=== PATIENT | female | born 2000 | race Caucasian/White ===

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

== ENCOUNTER 2018-08-08 14:48 | Emergency (ER) | payer SELFPAY ==
[~2018-08-08] VITALS: Ht 165.1 cm; Wt 81.6 kg
[~2018-08-08 14:48] MED LIST changes: +DOCU100C37 PO; +IBUP-1780 PO; +OXYC-465 PO
--- OUTSIDE RECORDS SUMMARY | 2018-08-08 14:53 | XMS REPORT ---
Author Author JAVON JUSTIN [facility] Address [address] [place] [address] Care Team Providers Care Clear Coat Sprayer Name Role Phone JAVON JUSTIN Unavailable PROBLEMS Unknown Problems ALLERGIES No Information ENCOUNTERS Encounter Location Date Diagnosis [facility] [address] [facility] [id number] [address] Jun, IMMUNIZATIONS No Known Immunizations SOCIAL HISTORY Never Assessed REASON FOR VISIT [place] Screening Results PLAN OF CARE VITAL SIGNS MEDICATIONS Unknown Medications RESULTS No Results PROCEDURES No Known procedures INSTRUCTIONS MEDICATIONS ADMINISTERED No Known Medications
--- OUTSIDE RECORDS SUMMARY | 2018-08-08 14:54 | XMS REPORT | Continuity of Care Document ---
Author Author [facility] Organization [facility] Address Unknown Phone Unavailable Allergies Active Description [...] and Drug Allergy Unknown Vomiting 10/19/2016 Medications There is no data. Problems There is no data. Procedures There is no data. <section xmlns="urn:hl7-org:v3" xmlns:xsi="http:// www.[employer].org/2001/XMLSchema-instance"> <templateId root= "2.16.840.1.747096.10.20.22.2.3" /> <templateId root= "2.16.840.1.690581.10.20.22.2.3.1" /> <code codeSystemName="LOINC" codeSystem= "2.16.840.1.603417.6.1" code="24616-2" displayName="Results" /> <title>Results< /title> <text> <table> <thead> <tr> <th>Test</th> <th>Result</th> <th>Range</th> </tr> </thead> < tbody> <tr> <th colspan="10">UR TEST - 02/04/13 22:52< /th> </tr> <tr> <td>UR TEST</td> <td> NEGATIVE </td> <td>NEGATIVE</td> </tr> <tr> <th colspan="10">URINALYSIS WITH MICROSCOPIC - 02/04/13 22:52</th> </tr> <tr> <td>UA LEUKOCYTE ESTERASE DIPSTICK</td> <td>NEGATIVE </td> <td>NEGATIVE</td> </tr> <tr> <td>UA NITRITE DIPSTICK</td> <td>NEGATIVE </td> <td>NEGATIVE</td> </tr> <tr> <td>UA PROTEIN DIPSTICK</td> <td> NEGATIVE </td> <td>NEGATIVE</td> </tr> <tr> <td> UA GLUCOSE DIPSTICK</td> <td>NEGATIVE </td> <td>NEGATIVE</td> </tr> <tr> <td>UA KETONE DIPSTICK</td> <td> NEGATIVE </td> <td>NEGATIVE</td> </tr> <tr> <td> UA UROBILINOGEN DIPSTICK</td> <td>NORMAL </td> <td>NORMAL</td > </tr> <tr> <td>UA BILIRUBIN DIPSTICK</td> <td> NEGATIVE </td> <td>NEGATIVE</td> </tr> <tr> <td> UA BLOOD DIPSTICK</td> <td>1+ </td> <td>NEGATIVE</td> < /tr> <tr> <td>UA BACTERIA</td> <td>1+ </td> < td>NEGATIVE</td> </tr> <tr> <td>UA EPITHELIAL CELLS</td> <td>1+ epi/hpf</td> <td>0 - 1+</td> </tr> <tr> <td>UA MUCUS</td> <td>2+ </td> <td>NEG TO 1+</td> </tr> <tr> <td>UA RBC</td> <td>0-3 rbc/hpf</td> <td>0 - 3</td> </tr> <tr> <td>UA VOLUME FOR EXAM </td> <td>12.0 mL</td> <td>(12mL STD)</td> </tr> <tr> <td>UA WBC</td> <td>0 wbc/hpf</td> <td>0 - 5</ td> </tr> <tr> <td>UA SPECIFIC GRAVITY</td> <td> 1.020 </td> <td>1.015-1.025</td> </tr> <tr> <td> UR PH</td> <td>6.0 </td> <td>5.0-7.0</td> </tr> <tr> <th colspan="10">STREP THROAT SCREEN (GROUP A) - STREP THROAT CULTURE (GROUP A) - 03/19/14 14:20</th> </tr> <tr> <td> Microbiology</td> <td> </td> <td /> </tr> <tr> <th colspan="10">CBC W/DIFF - 08/18/16 21:22</th> </tr> < tr> <td>EOSINOPHIL #</td> <td>0.1 k/cumm</td> <td>0.1 -0.5</td> </tr> <tr> <td>EOSINOPHIL %</td> < td>1 %</td> <td>2-4</td> </tr> <tr> <td> GRANULOCYTE #</td> <td>11.6 k/cumm</td> <td>2.0-9.0</td> </tr> <tr> <td>GRANULOCYTE %</td> <td>75 %</ td> <td>50-75</td> </tr> <tr> <td>LYMPHOCYTE #</ td> <td>3.0 k/cumm</td> <td>1.0-4.0</td> </tr> < tr> <td>LYMPHOCYTE %</td> <td>19 %</td> <td> 20-30</td> </tr> <tr> <td>MEAN CELL HGB</td> <td >29.3 pg</td> <td>27.0-33.0</td> </tr> <tr> <td> MEAN CELL HGB CONCENTRATION</td> <td>33.8 g/dL</td> <td>32.0- 37.0</td> </tr> <tr> <td>MEAN CELL VOLUME</td> < td>86.7 fl</td> <td>80.0-100.0</td> </tr> <tr> < td>MONOCYTE #</td> <td>0.8 k/cumm</td> <td>0.1-1.0</td> </tr> <tr> <td>MONOCYTE %</td> <td>5 %</td> <td>4-6</td> </tr> <tr> <td>RED BLOOD CELL</td> <td>4.44 m/cumm</td> <td>4.00-6.00</td> </tr> < tr> <td>RED CELL DISTRIBUTION WIDTH</td> <td>13.8 %</td> <td>11.0-15.6</td> </tr> <tr> <td>WHITE BLOOD CELL</td> <td>15.4 k/cumm</td> <td>5.0-10.0</td> </tr> <tr> <td>HEMOGLOBIN</td> <td>13.0 gm/dL</td> <td>12.0-16.0</td> </tr> <tr> <td>HEMATOCRIT</td> <td>38.5 %</td> <td>37.0-47.0</td> </tr> <tr> <td>PLATELET COUNT</td> <td>286 k/cumm</td> <td>150-450< /td> </tr> <tr> <th colspan="10">METABOLIC PANEL, BASIC - 08/18/16 21:22</th> </tr> <tr> <td>POTASSIUM</td> <td>3.4 mmol/L</td> <td>3.5-5.3</td> </tr> <tr> <td>EST GFR (MDRD)</td> <td>> 60 mL/min</td> <td>&gt ; 59</td> </tr> <tr> <td>ANION GAP</td> <td>10 mmol/L</td> <td>5-15</td> </tr> <tr> <td>EST CrCl (CG)</td> <td>> 60 mL/min</td> <td>> 59</td> </tr> <tr> <td>GLUCOSE</td> <td>93 mg/dL</td> <td>70-99</td> </tr> <tr> <td>CALCIUM</td> < td>9.0 mg/dL</td> <td>8.5-10.1</td> </tr> <tr> < td>BLOOD UREA NITROGEN</td> <td>11 mg/dL</td> <td>7-20</td> </tr> <tr> <td>CREATININE</td> <td>0.7 mg/dL</td > <td>0.5-1.0</td> </tr> <tr> <td>SODIUM</td> <td>138 mmol/L</td> <td>135-148</td> </tr> <tr> <td>CHLORIDE</td> <td>101 mmol/L</td> <td>98-110</td > </tr> <tr> <td>CARBON DIOXIDE</td> <td>27 mmol /L</td> <td>21-32</td> </tr> <tr> <th colspan= "10">URINALYSIS, ROUTINE - 08/18/16 22:30</th> </tr> <tr> <td>UA LEUKOCYTE ESTERASE DIPSTICK</td> <td>NEGATIVE </td> < td>NEGATIVE</td> </tr> <tr> <td>UA NITRITE DIPSTICK</td> <td>NEGATIVE </td> <td>NEGATIVE</td> </tr> <tr > <td>UA PROTEIN DIPSTICK</td> <td>TRACE </td> <td> NEGATIVE</td> </tr> <tr> <td>UA GLUCOSE DIPSTICK</td> <td>NEGATIVE </td> <td>NEGATIVE</td> </tr> <tr> <td>UA KETONE DIPSTICK</td> <td>NEGATIVE </td> <td> NEGATIVE</td> </tr> <tr> <td>UA UROBILINOGEN DIPSTICK</td > <td>NORMAL </td> <td>NORMAL</td> </tr> <tr> <td>UA BILIRUBIN DIPSTICK</td> <td>NEGATIVE </td> <td> NEGATIVE</td> </tr> <tr> <td>UA BLOOD DIPSTICK</td> <td>2+ </td> <td>NEGATIVE</td> </tr> <tr> < td>UA SPECIFIC GRAVITY</td> <td>1.020 </td> <td>1.015-1.025</ td> </tr> <tr> <td>UR PH</td> <td>6.5 </td> <td>5.0-7.0</td> </tr> <tr> <th colspan="10">UA MICROSCOPIC - 08/18/16 22:30</th> </tr> <tr> <td>UA AMORPHOUS SEDIMENT</td> <td>1+ </td> <td /> </tr> <tr> <td>UA EPITHELIAL CELLS</td> <td>1+ epi/hpf</td> <td>0 - 1+</td> </tr> <tr> <td>UA MUCUS</td> <td>3+ </td> <td>NEG TO 1+</td> </tr> <tr> < td>UA RBC</td> <td>3-5 rbc/hpf</td> <td>0 - 3</td> </tr > <tr> <td>UA VOLUME FOR EXAM</td> <td>12.0 mL</td> <td>(12mL STD)</td> </tr> <tr> <td>UA WBC</td> <td>0 wbc/hpf</td> <td>0 - 5</td> </tr> <tr> <th colspan="10">UR TEST - 08/18/16 22:30</th> </tr> <tr> <td>UR TEST</td> <td>NEGATIVE </td> <td>NEGATIVE</td> </tr> </tbody> </table> </text> <entry> <organizer moodCode="EVN" classCode="BATTERY"> <templateId root= "216.840.1.168013.10..22.4.1" /> <id nullFlavor="NA" /> <code codeSystem="local" code="PREGU" displayName="UR TEST" /> < statusCode code="completed" /> <component> <observation moodCode= "EVN" classCode="OBS"> <templateId root="216.840.1.507346.10..22.4.2 " /> <id nullFlavor="NA" /> <code codeSystem="local" code= "PREGU" displayName="UR TEST" /> <statusCode code="completed " /> <effectiveTime value="442357934698" /> <value unit="" xsi :type="PQ" value="NEGATIVE" /> <referenceRange> < observationRange> <text>NEGATIVE</text> </ observationRange> </referenceRange> </observation> </ component> </organizer> </entry> <entry> <organizer moodCode="EVN" classCode="BATTERY"> <templateId root="216.840.1.454246.10..22.4.1" /> <id nullFlavor="NA" /> <code codeSystem="local" code="UAM" displayName ="URINALYSIS WITH MICROSCOPIC" /> <statusCode code="completed" /> < component> <observation moodCode="EVN" classCode="OBS"> < templateId root="09.09.840.1.210830.05.13.224.2" /> <id nullFlavor="NA " /> <code codeSystem="local" code="LEUESU" displayName="UA LEUKOCYTE ESTERASE DIPSTICK" /> <statusCode code="completed" /> < effectiveTime value="842280621857" /> <value unit="" xsi:type="PQ" value="NEGATIVE" /> <referenceRange> <observationRange> <text>NEGATIVE</text> </observationRange> </ referenceRange> </observation> </component> <component> <observation moodCode="EVN" classCode="OBS"> <templateId root= "840.1.708810.05.13.224.2" /> <id nullFlavor="NA" /> < code codeSystem="local" code="NITRIU" displayName="UA NITRITE DIPSTICK" /> <statusCode code="completed" /> <effectiveTime value="121467341358 " /> <value unit="" xsi:type="PQ" value="NEGATIVE" /> < referenceRange> <observationRange> <text>NEGATIVE</text > </observationRange> </referenceRange> </observation > </component> <component> <observation moodCode="EVN" classCode="OBS"> <templateId root="09.09.840.1.016051.104.2" /> <id nullFlavor="NA" /> <code codeSystem="local" code="PROTEIU " displayName="UA PROTEIN DIPSTICK" /> <statusCode code="completed" /> <effectiveTime value="508241835336" /> <value unit="" xsi: type="PQ" value="NEGATIVE" /> <referenceRange> < observationRange> <text>NEGATIVE</text> </ observationRange> </referenceRange> </observation> </ component> <component> <observation moodCode="EVN" classCode="OBS"> <templateId root="16.840.1.090416.10..4.2" /> <id nullFlavor="NA" /> <code codeSystem="local" code="DGLUU" displayName= "UA GLUCOSE DIPSTICK" /> <statusCode code="completed" /> < effectiveTime value="264797119211" /> <value unit="" xsi:type="PQ" value="NEGATIVE" /> <referenceRange> <observationRange> <text>NEGATIVE</text> </observationRange> </ referenceRange> </observation> </component> <component> <observation moodCode="EVN" classCode="OBS"> <templateId root= "09.09.840.1.077111.10.4.2" /> <id nullFlavor="NA" /> < code codeSystem="local" code="KETONU" displayName="UA KETONE DIPSTICK" /> <statusCode code="completed" /> <effectiveTime value="891398575999 " /> <value unit="" xsi:type="PQ" value="NEGATIVE" /> < referenceRange> <observationRange> <text>NEGATIVE</text > </observationRange> </referenceRange> </observation > </component> <component> <observation moodCode="EVN" classCode="OBS"> <templateId root="09.09.840.1.978441.10.4.2" /> <id nullFlavor="NA" /> <code codeSystem="local" code="UROBILU " displayName="UA UROBILINOGEN DIPSTICK" /> <statusCode code="completed " /> <effectiveTime value="751352764870" /> <value unit="" xsi :type="PQ" value="NORMAL" /> <referenceRange> < observationRange> <text>NORMAL</text> </observationRange > </referenceRange> </observation> </component> < component> <observation moodCode="EVN" classCode="OBS"> < templateId root="216.840.1.322266.10...4.2" /> <id nullFlavor="NA " /> <code codeSystem="local" code="BILU" displayName="UA BILIRUBIN DIPSTICK" /> <statusCode code="completed" /> <effectiveTime value="130685422420" /> <value unit="" xsi:type="PQ" value="NEGATIVE" / > <referenceRange> <observationRange> <text> NEGATIVE</text> </observationRange> </referenceRange> </observation> </component> <component> <observation moodCode ="EVN" classCode="OBS"> <templateId root= "16.840.1.897657.10...4.2" /> <id nullFlavor="NA" /> < code codeSystem="local" code="RODOLFO" displayName="UA BLOOD DIPSTICK" /> < statusCode code="completed" /> <effectiveTime value="646426746947" /> <value unit="" xsi:type="PQ" value="1+" /> < interpretationCode codeSystem="local" code="*" /> <referenceRange> <observationRange> <text>NEGATIVE</text> </ observationRange> </referenceRange> </observation> </ component> <component> <observation moodCode="EVN" classCode="OBS"> <templateId root="16.840.1.370836.10..22.4.2" /> <id nullFlavor="NA" /> <code codeSystem="local" code="BACU" displayName=" UA BACTERIA" /> <statusCode code="completed" /> < effectiveTime value="172643973638" /> <value unit="" xsi:type="PQ" value="1+" /> <interpretationCode codeSystem="local" code="*" /> <referenceRange> <observationRange> <text>NEGATIVE</ text> </observationRange> </referenceRange> </ observation> </component> <component> <observation moodCode= "EVN" classCode="OBS"> <templateId root="216.840.1.534474.10...4.2 " /> <id nullFlavor="NA" /> <code codeSystem="local" code= "EPIU" displayName="UA EPITHELIAL CELLS" /> <statusCode code="completed " /> <effectiveTime value="687371950999" /> <value unit="epi/ hpf" xsi:type="PQ" value="1+" /> <referenceRange> < observationRange> <text>0 - 1+</text> </observationRange > </referenceRange> </observation> </component> < component> <observation moodCode="EVN" classCode="OBS"> < templateId root="216.840.1.789672.10...4.2" /> <id nullFlavor="NA " /> <code codeSystem="local" code="MUCUSU" displayName="UA MUCUS" /> <statusCode code="completed" /> <effectiveTime value= "365175181193" /> <value unit="" xsi:type="PQ" value="2+" /> < interpretationCode codeSystem="local" code="*" /> <referenceRange> <observationRange> <text>NEG TO 1+</text> </ observationRange> </referenceRange> </observation> </ component> <component> <observation moodCode="EVN" classCode="OBS"> <templateId root="216.840.1.313577.10..22.4.2" /> <id nullFlavor="NA" /> <code codeSystem="local" code="RBCU" displayName=" UA RBC" /> <statusCode code="completed" /> <effectiveTime value="255237737910" /> <value unit="rbc/hpf" xsi:type="PQ" value="0-3 " /> <referenceRange> <observationRange> <text> 0 - 3</text> </observationRange> </referenceRange> </ observation> </component> <component> <observation moodCode= "EVN" classCode="OBS"> <templateId root="216.840.1.948782.10..4.2 " /> <id nullFlavor="NA" /> <code codeSystem="local" code= "UAVOL" displayName="UA VOLUME FOR EXAM" /> <statusCode code="completed " /> <effectiveTime value="216380207816" /> <value unit="mL" xsi:type="PQ" value="12.0" /> <referenceRange> < observationRange> <text>(12mL STD)</text> </ observationRange> </referenceRange> </observation> </ component> <component> <observation moodCode="EVN" classCode="OBS"> <templateId root="16.840.1.193283.10..22.4.2" /> <id nullFlavor="NA" /> <code codeSystem="local" code="WBCU" displayName=" UA WBC" /> <statusCode code="completed" /> <effectiveTime value="449873840460" /> <value unit="wbc/hpf" xsi:type="PQ" value="0" / > <referenceRange> <observationRange> <text>0 - 5</text> </observationRange> </referenceRange> </ observation> </component> <component> <observation moodCode= "EVN" classCode="OBS"> <templateId root="216.840.1.320242.10..22.4.2 " /> <id nullFlavor="NA" /> <code codeSystem="local" code= "SPGRU" displayName="UA SPECIFIC GRAVITY" /> <statusCode code= "completed" /> <effectiveTime value="243321593381" /> <value unit="" xsi:type="PQ" value="1.020" /> <referenceRange> < observationRange> <text>1.015-1.025</text> </ observationRange> </referenceRange> </observation> </ component> <component> <observation moodCode="EVN" classCode="OBS"> <templateId root="09.09.840.1.770957.10..4.2" /> <id nullFlavor="NA" /> <code codeSystem="local" code="KAILEY" displayName="UR PH" /> <statusCode code="completed" /> <effectiveTime value= "570992359462" /> <value unit="" xsi:type="PQ" value="6.0" /> <referenceRange> <observationRange> <text>5.0-7.0</text > </observationRange> </referenceRange> </observation > </component> </organizer> </entry> <entry> <organizer moodCode= "EVN" classCode="BATTERY"> <templateId root="2.16.840.1.208433.10..22.4.1 " /> <id nullFlavor="NA" /> <code codeSystem="local" code="STREPA" displayName="STREP THROAT SCREEN (GROUP A) - STREP THROAT CULTURE (GROUP A)" /> <statusCode code="completed" /> <component> <observation moodCode="EVN" classCode="OBS"> <templateId root= "2.16.840.1.375658.10..4.2" /> <id nullFlavor="NA" /> < code codeSystem="local" code="MB" displayName="Microbiology" /> < statusCode code="completed" /> <effectiveTime value="799057389463" /> <value xsi:type="ST" value="<pre><b>STREP THROAT SCREEN (GROUP A) - STREP THROAT CULTURE (GROUP A)</b> See BelowSTREP THROAT SCREEN (GROUP A)(F) Haily Date/Time: 03/19/2014 14:20 Caleb Date/Time: 03/21/2014 09:48SOURCE: THROATSPEC DESC: [facility]PNEGATIVEST[facility] [id number] [place], [place] [address]See BelowSTREP THROAT CULTURE (GROUP A)(F) Haily Date/Time: 03/19/2014 14:20 Caleb Date/Time: 03/21/2014 09:48SOURCE: THROATSPEC DESC: NNO GROUP A STREPTOCOCCUS [facility]ATEDID[facility] - [id number] [place] [address]</pre>" /> <referenceRange> <observationRange> <text /> </observationRange> </referenceRange> </observation> </component> </organizer> </entry> <entry> < organizer moodCode="EVN" classCode="BATTERY"> <templateId root= "2.16.840.1.244018.10...4.1" /> <id nullFlavor="NA" /> <code codeSystem="local" code="CBCD" displayName="CBC W/DIFF" /> <statusCode code ="completed" /> <component> <observation moodCode="EVN" classCode= "OBS"> <templateId root="2.16840.1.390918.05.13.22.4.2" /> < id nullFlavor="NA" /> <code codeSystem="local" code="EO#" displayName= "EOSINOPHIL #" /> <statusCode code="completed" /> < effectiveTime value="646351131726" /> <value unit="k/cumm" xsi:type="PQ " value="0.1" /> <referenceRange> <observationRange> <text>0.1-0.5</text> </observationRange> </ referenceRange> </observation> </component> <component> <observation moodCode="EVN" classCode="OBS"> <templateId root= "840.1.014958.05.13.224.2" /> <id nullFlavor="NA" /> < code codeSystem="local" code="EO%" displayName="EOSINOPHIL %" /> <statusCode code="completed" /> <effectiveTime value="893698328161" /> <value unit="%" xsi:type="PQ" value="1" /> < interpretationCode codeSystem="local" code="*" /> <referenceRange> <observationRange> <text>2-4</text> </ observationRange> </referenceRange> </observation> </ component> <component> <observation moodCode="EVN" classCode="OBS"> <templateId root="840.1.564732.05.13.22.4.2" /> <id nullFlavor="NA" /> <code codeSystem="local" code="GR#" displayName= "GRANULOCYTE #" /> <statusCode code="completed" /> < effectiveTime value="931399294552" /> <value unit="k/cumm" xsi:type="PQ " value="11.6" /> <interpretationCode codeSystem="local" code="*" /> <referenceRange> <observationRange> <text>2.0- 9.0</text> </observationRange> </referenceRange> </ observation> </component> <component> <observation moodCode= "EVN" classCode="OBS"> <templateId root="09.09.840.1.036730.10.20.22.4.2 " /> <id nullFlavor="NA" /> <code codeSystem="local" code="GR& #37;" displayName="GRANULOCYTE %" /> <statusCode code="completed" / > <effectiveTime value="305102789782" /> <value unit="%" xsi:type="PQ" value="75" /> <referenceRange> < observationRange> <text>50-75</text> </observationRange > </referenceRange> </observation> </component> < component> <observation moodCode="EVN" classCode="OBS"> < templateId root="840.1.106238.10.2022.4.2" /> <id nullFlavor="NA " /> <code codeSystem="local" code="LY#" displayName="LYMPHOCYTE #" /> <statusCode code="completed" /> <effectiveTime value= "166126181076" /> <value unit="k/cumm" xsi:type="PQ" value="3.0" /> <referenceRange> <observationRange> <text>1.0-4.0 </text> </observationRange> </referenceRange> </ observation> </component> <component> <observation moodCode= "EVN" classCode="OBS"> <templateId root="840.1.229447.10.20.22.4.2 " /> <id nullFlavor="NA" /> <code codeSystem="local" code="LY& #37;" displayName="LYMPHOCYTE %" /> <statusCode code="completed" / > <effectiveTime value="457595741776" /> <value unit="%" xsi:type="PQ" value="19" /> <interpretationCode codeSystem="local" code ="*" /> <referenceRange> <observationRange> < text>20-30</text> </observationRange> </referenceRange> </observation> </component> <component> <observation moodCode="EVN" classCode="OBS"> <templateId root= "216.840.1.245271.10.20.22.4.2" /> <id nullFlavor="NA" /> < code codeSystem="local" code="MCH" displayName="MEAN CELL HGB" /> < statusCode code="completed" /> <effectiveTime value="343050479578" /> <value unit="pg" xsi:type="PQ" value="29.3" /> <referenceRange > <observationRange> <text>27.0-33.0</text> < /observationRange> </referenceRange> </observation> </ component> <component> <observation moodCode="EVN" classCode="OBS"> <templateId root="216.840.1.526581.10.20.22.4.2" /> <id nullFlavor="NA" /> <code codeSystem="local" code="MCHC" displayName= "MEAN CELL HGB CONCENTRATION" /> <statusCode code="completed" /> <effectiveTime value="590812500786" /> <value unit="g/dL" xsi:type= "PQ" value="33.8" /> <referenceRange> <observationRange> <text>32.0-37.0</text> </observationRange> </ referenceRange> </observation> </component> <component> <observation moodCode="EVN" classCode="OBS"> <templateId root= "09.09.840.1.703660.10.22.4.2" /> <id nullFlavor="NA" /> < code codeSystem="local" code="MCV" displayName="MEAN CELL VOLUME" /> < statusCode code="completed" /> <effectiveTime value="988523181778" /> <value unit="fl" xsi:type="PQ" value="86.7" /> <referenceRange > <observationRange> <text>80.0-100.0</text> </observationRange> </referenceRange> </observation> </ component> <component> <observation moodCode="EVN" classCode="OBS"> <templateId root="09.09.840.1.187982...4.2" /> <id nullFlavor="NA" /> <code codeSystem="local" code="MO#" displayName= "MONOCYTE #" /> <statusCode code="completed" /> < effectiveTime value="829526101819" /> <value unit="k/cumm" xsi:type="PQ " value="0.8" /> <referenceRange> <observationRange> <text>0.1-1.0</text> </observationRange> </ referenceRange> </observation> </component> <component> <observation moodCode="EVN" classCode="OBS"> <templateId root= "09.09.840.1.778227.10.22.4.2" /> <id nullFlavor="NA" /> < code codeSystem="local" code="MO%" displayName="MONOCYTE %" /> <statusCode code="completed" /> <effectiveTime value="481819946966" /> <value unit="%" xsi:type="PQ" value="5" /> < referenceRange> <observationRange> <text>4-6</text> </observationRange> </referenceRange> </observation> </component> <component> <observation moodCode="EVN" classCode= "OBS"> <templateId root="216.840.1.005249.10.4.2" /> < id nullFlavor="NA" /> <code codeSystem="local" code="RBC" displayName= "RED BLOOD CELL" /> <statusCode code="completed" /> < effectiveTime value="[id number]" /> <value unit="m/cumm" xsi:type="PQ " value="4.44" /> <referenceRange> <observationRange> <text>4.00-6.00</text> </observationRange> </ referenceRange> </observation> </component> <component> <observation moodCode="EVN" classCode="OBS"> <templateId root= "[id number]" /> <id nullFlavor="NA" /> < code codeSystem="local" code="RDW" displayName="RED CELL DISTRIBUTION WIDTH" /> <statusCode code="completed" /> <effectiveTime value= "[id number]" /> <value unit="%" xsi:type="PQ" value="13.8" /> <referenceRange> <observationRange> <text>11.0- 15.6</text> </observationRange> </referenceRange> </ observation> </component> <component> <observation moodCode= "EVN" classCode="OBS"> <templateId root="[id number] " /> <id nullFlavor="NA" /> <code codeSystem="local" code="WBC " displayName="WHITE BLOOD CELL" /> <statusCode code="completed" /> <effectiveTime value="[id number]" /> <value unit="k/cumm" xsi: type="PQ" value="15.4" /> <interpretationCode codeSystem="local" code= "*" /> <referenceRange> <observationRange> < text>5.0-10.0</text> </observationRange> </referenceRange> </observation> </component> <component> <observation moodCode="EVN" classCode="OBS"> <templateId root= "[id number].2" /> <id nullFlavor="NA" /> < code codeSystem="local" code="HGBT" displayName="HEMOGLOBIN" /> < statusCode code="completed" /> <effectiveTime value="[id number]" /> <value unit="gm/dL" xsi:type="PQ" value="13.0" /> < referenceRange> <observationRange> <text>12.0-16.0</text > </observationRange> </referenceRange> </observation > </component> <component> <observation moodCode="EVN" classCode="OBS"> <templateId root="[id number]" /> <id nullFlavor="NA" /> <code codeSystem="local" code="HCTT" displayName="HEMATOCRIT" /> <statusCode code="completed" /> < effectiveTime value="[id number]" /> <value unit="%" xsi:type="PQ " value="38.5" /> <referenceRange> <observationRange> <text>37.0-47.0</text> </observationRange> </ referenceRange> </observation> </component> <component> <observation moodCode="EVN" classCode="OBS"> <templateId root= "[id number].2" /> <id nullFlavor="NA" /> < code codeSystem="local" code="PLT" displayName="PLATELET COUNT" /> < statusCode code="completed" /> <effectiveTime value="145298419099" /> <value unit="k/cumm" xsi:type="PQ" value="286" /> < referenceRange> <observationRange> <text>150-450</text> </observationRange> </referenceRange> </observation > </component> </organizer> </entry> <entry> <organizer moodCode= "EVN" classCode="BATTERY"> <templateId root="[id number]2.4.1 " /> <id nullFlavor="NA" /> <code codeSystem="local" code="METAB" displayName="METABOLIC PANEL, BASIC" /> <statusCode code="completed" /> <component> <observation moodCode="EVN" classCode="OBS"> < templateId root="[id number]" /> <id nullFlavor="NA " /> <code codeSystem="local" code="K" displayName="POTASSIUM" /> <statusCode code="completed" /> <effectiveTime value="[id number] " /> <value unit="mmol/L" xsi:type="PQ" value="3.4" /> < interpretationCode codeSystem="local" code="*" /> <referenceRange> <observationRange> <text>3.5-5.3</text> </ observationRange> </referenceRange> </observation> </ component> <component> <observation moodCode="EVN" classCode="OBS"> <templateId root="09.09.840.1.411389.05.13.22.4.2" /> <id nullFlavor="NA" /> <code codeSystem="local" code="eGFR" displayName= "EST GFR (MDRD)" /> <statusCode code="completed" /> < effectiveTime value="131904708480" /> <value unit="mL/min" xsi:type="PQ " value="> 60" /> <referenceRange> <observationRange> <text>> 59</text> </observationRange> </ referenceRange> </observation> </component> <component> <observation moodCode="EVN" classCode="OBS"> <templateId root= "2.16.840.1.174443.10.20.22.4.2" /> <id nullFlavor="NA" /> < code codeSystem="local" code="GAP" displayName="ANION GAP" /> < statusCode code="completed" /> <effectiveTime value="391048301282" /> <value unit="mmol/L" xsi:type="PQ" value="10" /> < referenceRange> <observationRange> <text>5-15</text> </observationRange> </referenceRange> </observation> </component> <component> <observation moodCode="EVN" classCode= "OBS"> <templateId root="2.16.840.1.719691.10.20.22.4.2" /> < id nullFlavor="NA" /> <code codeSystem="local" code="eCrCl" displayName ="EST CrCl (CG)" /> <statusCode code="completed" /> < effectiveTime value="037635187141" /> <value unit="mL/min" xsi:type="PQ " value="> 60" /> <referenceRange> <observationRange> <text>> 59</text> </observationRange> </ referenceRange> </observation> </component> <component> <observation moodCode="EVN" classCode="OBS"> <templateId root= "216.840.1.192087.10..22.4.2" /> <id nullFlavor="NA" /> < code codeSystem="local" code="GLU" displayName="GLUCOSE" /> < statusCode code="completed" /> <effectiveTime value="370110153415" /> <value unit="mg/dL" xsi:type="PQ" value="93" /> < referenceRange> <observationRange> <text>70-99</text> </observationRange> </referenceRange> </observation> </component> <component> <observation moodCode="EVN" classCode= "OBS"> <templateId root="16.840.1.725752.05.13.22.4.2" /> < id nullFlavor="NA" /> <code codeSystem="local" code="CA" displayName= "CALCIUM" /> <statusCode code="completed" /> <effectiveTime value="513258691240" /> <value unit="mg/dL" xsi:type="PQ" value="9.0" / > <referenceRange> <observationRange> <text>8.5 -10.1</text> </observationRange> </referenceRange> </ observation> </component> <component> <observation moodCode= "EVN" classCode="OBS"> <templateId root="16.840.1.333789.22.4.2 " /> <id nullFlavor="NA" /> <code codeSystem="local" code="BUN " displayName="BLOOD UREA NITROGEN" /> <statusCode code="completed" /> <effectiveTime value="260036593524" /> <value unit="mg/dL" xsi:type="PQ" value="11" /> <referenceRange> < observationRange> <text>7-20</text> </observationRange> </referenceRange> </observation> </component> < component> <observation moodCode="EVN" classCode="OBS"> < templateId root="216.840.1.787316.10..4.2" /> <id nullFlavor="NA " /> <code codeSystem="local" code="CREAT" displayName="CREATININE" /> <statusCode code="completed" /> <effectiveTime value= "432112735105" /> <value unit="mg/dL" xsi:type="PQ" value="0.7" /> <referenceRange> <observationRange> <text>0.5-1.0< /text> </observationRange> </referenceRange> </ observation> </component> <component> <observation moodCode= "EVN" classCode="OBS"> <templateId root="216.840.1.984964.05.13.22.4.2 " /> <id nullFlavor="NA" /> <code codeSystem="local" code="NA " displayName="SODIUM" /> <statusCode code="completed" /> < effectiveTime value="507321889143" /> <value unit="mmol/L" xsi:type="PQ " value="138" /> <referenceRange> <observationRange> <text>135-148</text> </observationRange> </ referenceRange> </observation> </component> <component> <observation moodCode="EVN" classCode="OBS"> <templateId root= "16.840.1.686759..22.4.2" /> <id nullFlavor="NA" /> < code codeSystem="local" code="CL" displayName="CHLORIDE" /> < statusCode code="completed" /> <effectiveTime value="038576947511" /> <value unit="mmol/L" xsi:type="PQ" value="101" /> < referenceRange> <observationRange> <text>98-110</text> </observationRange> </referenceRange> </observation> </component> <component> <observation moodCode="EVN" classCode ="OBS"> <templateId root="216.840.1.006164.10.20.22.4.2" /> < id nullFlavor="NA" /> <code codeSystem="local" code="CO2" displayName= "CARBON DIOXIDE" /> <statusCode code="completed" /> < effectiveTime value="025308213021" /> <value unit="mmol/L" xsi:type="PQ " value="27" /> <referenceRange> <observationRange> <text>21-32</text> </observationRange> </ referenceRange> </observation> </component> </organizer> </entry > <entry> <organizer moodCode="EVN" classCode="BATTERY"> <templateId root="2.16.840.1.344109.10..22.4.1" /> <id nullFlavor="NA" /> <code codeSystem="local" code="UA" displayName="URINALYSIS, ROUTINE" /> < statusCode code="completed" /> <component> <observation moodCode= "EVN" classCode="OBS"> <templateId root="216.840.1.489248.10..22.4.2 " /> <id nullFlavor="NA" /> <code codeSystem="local" code= "LEUESU" displayName="UA LEUKOCYTE ESTERASE DIPSTICK" /> <statusCode code="completed" /> <effectiveTime value="677169369630" /> < value unit="" xsi:type="PQ" value="NEGATIVE" /> <referenceRange> <observationRange> <text>NEGATIVE</text> </ observationRange> </referenceRange> </observation> </ component> <component> <observation moodCode="EVN" classCode="OBS"> <templateId root="216.840.1.220971.10..22.4.2" /> <id nullFlavor="NA" /> <code codeSystem="local" code="NITRIU" displayName= "UA NITRITE DIPSTICK" /> <statusCode code="completed" /> < effectiveTime value="173654557158" /> <value unit="" xsi:type="PQ" value="NEGATIVE" /> <referenceRange> <observationRange> <text>NEGATIVE</text> </observationRange> </ referenceRange> </observation> </component> <component> <observation moodCode="EVN" classCode="OBS"> <templateId root= "16.840.1.039406.10..4.2" /> <id nullFlavor="NA" /> < code codeSystem="local" code="PROTEIU" displayName="UA PROTEIN DIPSTICK" /> <statusCode code="completed" /> <effectiveTime value= "549204370210" /> <value unit="" xsi:type="PQ" value="TRACE" /> <referenceRange> <observationRange> <text>NEGATIVE</ text> </observationRange> </referenceRange> </ observation> </component> <component> <observation moodCode= "EVN" classCode="OBS"> <templateId root="16.840.1.337832.10..4.2 " /> <id nullFlavor="NA" /> <code codeSystem="local" code= "DGLUU" displayName="UA GLUCOSE DIPSTICK" /> <statusCode code= "completed" /> <effectiveTime value="857697343413" /> <value unit="" xsi:type="PQ" value="NEGATIVE" /> <referenceRange> < observationRange> <text>NEGATIVE</text> </ observationRange> </referenceRange> </observation> </ component> <component> <observation moodCode="EVN" classCode="OBS"> <templateId root="216.840.1.443847.10.4.2" /> <id nullFlavor="NA" /> <code codeSystem="local" code="KETONU" displayName= "UA KETONE DIPSTICK" /> <statusCode code="completed" /> < effectiveTime value="410427691029" /> <value unit="" xsi:type="PQ" value="NEGATIVE" /> <referenceRange> <observationRange> <text>NEGATIVE</text> </observationRange> </ referenceRange> </observation> </component> <component> <observation moodCode="EVN" classCode="OBS"> <templateId root= "09.09.840.1.263364.05.13.22.4.2" /> <id nullFlavor="NA" /> < code codeSystem="local" code="UROBILU" displayName="UA UROBILINOGEN DIPSTICK" / > <statusCode code="completed" /> <effectiveTime value= "848012325622" /> <value unit="" xsi:type="PQ" value="NORMAL" /> <referenceRange> <observationRange> <text>NORMAL</ text> </observationRange> </referenceRange> </ observation> </component> <component> <observation moodCode= "EVN" classCode="OBS"> <templateId root="16.840.1.642051.05.13.22.4.2 " /> <id nullFlavor="NA" /> <code codeSystem="local" code= "BILU" displayName="UA BILIRUBIN DIPSTICK" /> <statusCode code= "completed" /> <effectiveTime value="929171697448" /> <value unit="" xsi:type="PQ" value="NEGATIVE" /> <referenceRange> < observationRange> <text>NEGATIVE</text> </ observationRange> </referenceRange> </observation> </ component> <component> <observation moodCode="EVN" classCode="OBS"> <templateId root="16.840.1.521850.10..22.4.2" /> <id nullFlavor="NA" /> <code codeSystem="local" code="RODOLFO" displayName="UA BLOOD DIPSTICK" /> <statusCode code="completed" /> < effectiveTime value="963725316137" /> <value unit="" xsi:type="PQ" value="2+" /> <interpretationCode codeSystem="local" code="*" /> <referenceRange> <observationRange> <text>NEGATIVE</ text> </observationRange> </referenceRange> </ observation> </component> <component> <observation moodCode= "EVN" classCode="OBS"> <templateId root="09.09.840.1.846176.10..4.2 " /> <id nullFlavor="NA" /> <code codeSystem="local" code= "SPGRU" displayName="UA SPECIFIC GRAVITY" /> <statusCode code= "completed" /> <effectiveTime value="991236988634" /> <value unit="" xsi:type="PQ" value="1.020" /> <referenceRange> < observationRange> <text>1.015-1.025</text> </ observationRange> </referenceRange> </observation> </ component> <component> <observation moodCode="EVN" classCode="OBS"> <templateId root="16.840.1.333020.10.20.22.4.2" /> <id nullFlavor="NA" /> <code codeSystem="local" code="KAILEY" displayName="UR PH" /> <statusCode code="completed" /> <effectiveTime value= "620954970597" /> <value unit="" xsi:type="PQ" value="6.5" /> <referenceRange> <observationRange> <text>5.0-7.0</text > </observationRange> </referenceRange> </observation > </component> </organizer> </entry> <entry> <organizer moodCode= "EVN" classCode="BATTERY"> <templateId root="16.840.1.344196.10..22.4.1 " /> <id nullFlavor="NA" /> <code codeSystem="local" code="UAMICRO" displayName="UA MICROSCOPIC" /> <statusCode code="completed" /> < component> <observation moodCode="EVN" classCode="OBS"> < templateId root="09.09.840.1.666326.10...4.2" /> <id nullFlavor="NA " /> <code codeSystem="local" code="AMORPU" displayName="UA AMORPHOUS SEDIMENT" /> <statusCode code="completed" /> <effectiveTime value="578593166016" /> <value unit="" xsi:type="PQ" value="1+" /> <referenceRange> <observationRange> <text /> </observationRange> </referenceRange> </observation> </component> <component> <observation moodCode="EVN" classCode= "OBS"> <templateId root="16.840.1.106462.10...4.2" /> < id nullFlavor="NA" /> <code codeSystem="local" code="EPIU" displayName= "UA EPITHELIAL CELLS" /> <statusCode code="completed" /> < effectiveTime value="183341128177" /> <value unit="epi/hpf" xsi:type= "PQ" value="1+" /> <referenceRange> <observationRange> <text>0 - 1+</text> </observationRange> </ referenceRange> </observation> </component> <component> <observation moodCode="EVN" classCode="OBS"> <templateId root= "216.840.1.828570.10...4.2" /> <id nullFlavor="NA" /> < code codeSystem="local" code="MUCUSU" displayName="UA MUCUS" /> < statusCode code="completed" /> <effectiveTime value="934019317159" /> <value unit="" xsi:type="PQ" value="3+" /> < interpretationCode codeSystem="local" code="*" /> <referenceRange> <observationRange> <text>NEG TO 1+</text> </ observationRange> </referenceRange> </observation> </ component> <component> <observation moodCode="EVN" classCode="OBS"> <templateId root="09.09.840.1.625008.05.13.22.4.2" /> <id nullFlavor="NA" /> <code codeSystem="local" code="RBCU" displayName=" UA RBC" /> <statusCode code="completed" /> <effectiveTime value="195186401258" /> <value unit="rbc/hpf" xsi:type="PQ" value="3-5 " /> <interpretationCode codeSystem="local" code="*" /> < referenceRange> <observationRange> <text>0 - 3</text> </observationRange> </referenceRange> </observation> </component> <component> <observation moodCode="EVN" classCode= "OBS"> <templateId root="216.840.1.986704...4.2" /> < id nullFlavor="NA" /> <code codeSystem="local" code="UAVOL" displayName ="UA VOLUME FOR EXAM" /> <statusCode code="completed" /> < effectiveTime value="020860191445" /> <value unit="mL" xsi:type="PQ" value="12.0" /> <referenceRange> <observationRange> <text>(12mL STD)</text> </observationRange> </ referenceRange> </observation> </component> <component> <observation moodCode="EVN" classCode="OBS"> <templateId root= "216.840.1.085202.05.13.22.4.2" /> <id nullFlavor="NA" /> < code codeSystem="local" code="WBCU" displayName="UA WBC" /> < statusCode code="completed" /> <effectiveTime value="405897962372" /> <value unit="wbc/hpf" xsi:type="PQ" value="0" /> < referenceRange> <observationRange> <text>0 - 5</text> </observationRange> </referenceRange> </observation> </component> </organizer> </entry> <entry> <organizer moodCode="EVN " classCode="BATTERY"> <templateId root="16.840.1.669469.05.13.22.4.1" / > <id nullFlavor="NA" /> <code codeSystem="local" code="PREGU" displayName="UR TEST" /> <statusCode code="completed" /> < component> <observation moodCode="EVN" classCode="OBS"> < templateId root="16.840.1.206215.10...4.2" /> <id nullFlavor="NA " /> <code codeSystem="local" code="PREGU" displayName="UR TEST" /> <statusCode code="completed" /> <effectiveTime value= "056798556815" /> <value unit="" xsi:type="PQ" value="NEGATIVE" /> <referenceRange> <observationRange> <text>NEGATIVE </text> </observationRange> </referenceRange> </ observation> </component> </organizer> </entry></section> Encounters ACCT No. Visit Date/Time Discharge Status Pt. Type Provider Facility Loc./Unit Complaint [id number] 10/19/2016 16:54:00 10/19/2016 17:58:00 DIS Emergency Alex CORDOVA, Varghese [facility].EDW [id number] 08/18/2016 21:01:00 08/18/2016 23:10:00 DIS Emergency Karena CORDOVA, Clarke Najera [facility].EDW [id number] 07/30/2016 14:24:00 07/30/2016 14:45:00 DIS Emergency Jeff MEDRANO, Jose Bermeo [facility].EDW [id number] 03/19/2014 12:59:00 03/19/2014 14:52:00 DIS Emergency Saeed CORDOVA, Sin Hernandez [facility].EDW [id number] 02/04/2013 22:19:00 02/04/2013 23:37:00 DIS Emergency Marino CORDOVA, Nabil Pang [facility].EDW [id number] 02/01/2014 22:55:00 Document Registration [id number] 10/24/2016 08:51:12 ACT Document Registration
[2018-08-08 16:08] LABS: BASOPHILS % (AUTO) 0 % (0-10); EOSINOPHILS # (AUTO) 0.1 10^3/uL (0.0-0.3); EOSINOPHILS % (AUTO) 1 % (0-10); HEMATOCRIT 41 % (35-52); HEMOGLOBIN 13.9 G/DL (11.5-16.0); LYMPHOCYTES # (AUTO) 2.2 X 10^3 (1.0-4.0); LYMPHOCYTES % (AUTO) 27 % (12-44); MEAN CORPUSCULAR HEMOGLOBIN 29 PG (25-34); MEAN CORPUSCULAR HGB CONC 34 G/DL (32-36); MEAN CORPUSCULAR VOLUME 86 FL (80-99); MEAN PLATELET VOLUME 9.8 FL (7.4-10.4); MONOCYTES # (AUTO) 0.3 X 10^3 (0.0-1.0); MONOCYTES % (AUTO) 4 % (0-12); NEUTROPHILS # (AUTO) 5.7 X 10^3 (1.8-7.8); NEUTROPHILS % (AUTO) 69 % (42-75); PLATELET COUNT 309 10^3/uL (130-400); RED BLOOD COUNT 4.81 10^6/uL (4.35-5.85); RED CELL DISTRIBUTION WIDTH 13.8 % (10.0-14.5); WHITE BLOOD COUNT 8.4 10^3/uL (4.3-11.0)
[2018-08-08 16:09] LABS: BILIRUBIN,URINE NEGATIVE (NEGATIVE); CLARITY,URINE SLIGHTLY CLOUDY; COLOR,URINE YELLOW; GLUCOSE, URINE (UA) NEGATIVE (NEGATIVE); KETONES,URINE NEGATIVE (NEGATIVE); LEUKOCYTE ESTERASE ,URINE 1+ (NEGATIVE); NITRITE,URINE NEGATIVE (NEGATIVE); PH,URINE 7 (5-9); PROTEIN,URINE 2+ (NEGATIVE); UROBILINOGEN,URINE NORMAL (NORMAL)
--- NOTE | 2018-08-08 16:14 | Diagnostic Imaging Report ---
PROCEDURE: US OB SINGLE FETUS <14 WKS. TECHNIQUE: Multiple real-time grayscale images were obtained over the gravid uterus in various projections. INDICATION: Abdominal pain, early . COMPARISON: There are no prior studies available for comparison. FINDINGS: There is a gestational sac within the uterus containing a single live fetus. heart motion was noted, and a rate of 165 BPM was recorded. The crown-rump length suggests the estimated gestational age is 10 weeks 2 days, +/- 1 week. There are no obvious abnormalities identified. However, if a more sensitive evaluation of the anatomy is desired, then a short-term (8-10 week) followup ultrasound exam should be obtained. The amniotic fluid volume is within normal limits. At this time, it is not certain where the placenta will develop. There does appear to be a small subchorionic hemorrhage adjacent to the gestational sac. This measures 1.2 x 0.7 x 1.4 cm. There is no pelvic mass or free fluid collection evident. The ovaries could not be visualized. IMPRESSION: 1. There is a single live intrauterine of approximately 10 weeks 2 days gestation, +/- 1 week. The EDC is March 04, 2019. 2. There are no obvious abnormalities identified. Recommendations as above. 3. There does appear to be a small subchorionic hemorrhage. Dictated by: Dictated on workstation # [id number]
--- NOTE | 2018-08-08 16:18 | ED GU-Female ---
General Chief Complaint: Abdominal/GI Problems Stated Complaint: ABD PAIN; AROUND 5 WKS PREG Nursing Triage Note: RLQ PAIN SINCE THE FIRST OF THIS MONTH THAT HAS BECAME WORSE. POSITIVE HOME PREG ON Jun. UNKNOWN LMP OR HOW FAR ALONG SHE IS. Nursing Sepsis Screen: No Definite Risk Source: patient Exam Limitations: no limitations History of Present Illness Date Seen by Provider: Aug 08, 2018 Time Seen by Provider: 16:19 Initial Comments To ER with reports of suprapubic abdominal pain, nausea, and estimated to be about 5 weeks . No vaginal bleeding. She is . Timing/Duration: getting worse Severity/Quality: moderate Location: suprapubic Radiation: none Activities at Onset: none Associated Symptoms: nausea/vomiting Allergies and Home Medications Allergies Coded Allergies: Iodinated Contrast- Oral and IV Dye (Verified Allergy, Unknown, 01/12/17) Home Medications Docusate Sodium 100 Mg Capsule, 100 MG PO BID Prescribed by: BREONNA MORIN on 06/25/17817 Ibuprofen 800 Mg Tablet, 800 MG PO Q6H Prescribed by: BREONNA MORIN on 06/25/17817 Oxycodone HCl/Acetaminophen 1 Each Tablet, 1-2 TAB PO Q4HR PRN for PAIN- MODERATE TO SEVERE Prescribed by: BREONNA MORIN on 06/25/17817 Patient Home Medication List Home Medication List Reviewed: Yes Review of Systems Review of Systems Constitutional: see HPI EENTM: see HPI Respiratory: no symptoms reported Cardiovascular: no symptoms reported Genitourinary: no symptoms reported Musculoskeletal: no symptoms reported Skin: no symptoms reported Psychiatric/Neurological: No Symptoms Reported Endocrine: No Symptoms Reported Past Trmveer-Xcxflg-Tprecs Hx Patient Social History Recent Foreign Travel: No Contact w/Someone Who Travel: No Recent Infectious Disease Expo: No Recent Hopitalizations: No Immunizations Up To Date PED Vaccines UTD: Yes Seasonal Allergies Seasonal Allergies: No Past Medical History Surgeries: No Respiratory: No Cardiac: No Neurological: No : Yes Female Reproductive Disorders: Denies Sexually Transmitted Disease: No HIV/AIDS: No Genitourinary: No Gastrointestinal: No Musculoskeletal: No Endocrine: No HEENT: No Cancer: No Psychosocial: No Integumentary: No Blood Disorders: No Adverse Reaction/Blood Tranf: No Physical Exam Vital Signs Vital Signs - First Documented 08/08/18 15:10 Temp 98.0 Pulse 98 Resp 16 B/P (MAP) 135/85 (102) Pulse Ox 97 O2 Delivery Room Air Capillary Refill : Less Than 3 Seconds Height, Weight, BMI Height: 5'5.00" Weight: 180lbs. 0.0oz. 81.751840zt; 33.8 BMI Method:Stated General Appearance: WD/WN, no apparent distress HEENT: PERRL/EOMI, normal ENT inspection Neck: non-tender, full range of motion Respiratory: no respiratory distress, no accessory muscle use Gastrointestinal: normal bowel sounds, soft, tenderness Neurologic/Psychiatric: alert, normal mood/affect, oriented x 3 Skin: normal color, warm/dry Progress/Results/Core Measures Suspected Sepsis Recent Fever Within 48 Hours: No Infection Criteria Present: Suspected New Infection New/Unexplained Altered Menta: No Sepsis Screen: No Definite Risk SIRS Temperature:98.0 Pulse: 98 Respiratory Rate: 16 Laboratory Tests 08/08/18 16:00: White Blood Count 8.4 Blood Pressure 135 /85 Mean: 102 Laboratory Tests 08/08/18 16:00: Creatinine 0.61, Platelet Count 309 Results/Orders Lab Results Laboratory Tests Test 08/08/18 15:55 08/08/18 16:00 Range/Units Urine Color YELLOW Urine Clarity SLIGHTLY CLOUDY Urine pH 7 5-9 Urine Specific [place] 1.010 L 1.016-1.022 Urine Protein 2+ H NEGATIVE Urine Glucose (UA) NEGATIVE NEGATIVE Urine Ketones NEGATIVE NEGATIVE Urine Nitrite NEGATIVE NEGATIVE Urine Bilirubin NEGATIVE NEGATIVE Urine Urobilinogen NORMAL NORMAL MG/DL Urine Leukocyte Esterase 1+ H NEGATIVE Urine RBC (Auto) 2+ H NEGATIVE Urine RBC 2-5 H /HPF Urine WBC 0-2 /HPF Urine Squamous Epithelial Cells 10-25 H /HPF Urine Crystals NONE /LPF Urine Bacteria FEW H /HPF Urine Casts NONE /LPF Urine Mucus LARGE H /LPF Urine Culture Indicated NO White Blood Count 8.4 4.3-11.0 10^3/uL Red Blood Count 4.81 4.35-5.85 10^6/uL Hemoglobin 13.9 11.5-16.0 G/DL Hematocrit 41 35-52 % Mean Corpuscular Volume 86 80-99 FL Mean Corpuscular Hemoglobin 29 25-34 PG Mean Corpuscular Hemoglobin Concent 34 32-36 G/DL Red Cell Distribution Width 13.8 10.0-14.5 % Platelet Count 309 130-400 10^3/uL Mean Platelet Volume 9.8 7.4-10.4 FL Neutrophils (%) (Auto) 69 42-75 % Lymphocytes (%) (Auto) 27 12-44 % Monocytes (%) (Auto) 4 0-12 % Eosinophils (%) (Auto) 1 0-10 % Basophils (%) (Auto) 0 0-10 % Neutrophils # (Auto) 5.7 1.8-7.8 X 10^3 Lymphocytes # (Auto) 2.2 1.0-4.0 X 10^3 Monocytes # (Auto) 0.3 0.0-1.0 X 10^3 Eosinophils # (Auto) 0.1 0.0-0.3 10^3/uL Basophils # (Auto) 0.0 0.0-0.1 10^3/uL Sodium Level 135 135-145 MMOL/L Potassium Level 3.7 3.6-5.0 MMOL/L Chloride Level 103 98-107 MMOL/L Carbon Dioxide Level 22 21-32 MMOL/L Anion Gap 10 5-14 MMOL/L Blood Urea Nitrogen 6 L 7-18 MG/DL Creatinine 0.61 0.60-1.30 MG/DL Estimat Glomerular Filtration Rate > 60 BUN/Creatinine Ratio 10 Glucose Level 80 70-105 MG/DL Calcium Level 9.4 8.5-10.1 MG/DL My Orders Orders - CRUZITO HOLMAN APRN Hcg,Quantitative (08/08/18 15:06) Cbc With Automated Diff (08/08/18 15:06) Basic Metabolic Panel (08/08/18 15:06) Ua Culture If Indicated (08/08/18 15:06) Iv Heplock-Insert (Order) (08/08/18 15:06) Us Ob Single Fetus<14 [id number] (08/08/18 15:06) Ns Iv 1000 Ml (Sodium Chloride 0.9%) (08/08/18 16:30) Promethazine Injection (Phenergan Injec (08/08/18 16:30) Vital Signs/I&O 08/08/18 15:10 Temp 98.0 Pulse 98 Resp 16 B/P (MAP) 135/85 (102) Pulse Ox 97 O2 Delivery Room Air Capillary Refill : Less Than 3 Seconds Blood Pressure Mean: 102 Diagnostic Imaging Diagonstic Imaging: Ultrasound Comments NAME: EMELIA APPLE [facility] REC#: [id number] PT STATUS: REG ER : 2000 PHYSICIAN: CRUZITO HOLMAN APRN ADMIT DATE: 08/08/18/ER Draft Date of Exam:08/08/18 US OB SINGLE FETUS<14 [id number] PROCEDURE: US OB SINGLE FETUS <14 WKS. TECHNIQUE: Multiple real-time grayscale images were obtained over the gravid uterus in various projections. INDICATION: Abdominal pain, early . COMPARISON: There are no prior studies available for comparison. FINDINGS: There is a gestational sac within the uterus containing a single live fetus. heart motion was noted, and a rate of 165 BPM was recorded. The crown-rump length suggests the estimated gestational age is 10 weeks 2 days, +/- 1 week. There are no obvious abnormalities identified. However, if a more sensitive evaluation of the anatomy is desired, then a short-term (8-10 week) followup ultrasound exam should be obtained. The amniotic fluid volume is within normal limits. At this time, it is not certain where the placenta will develop. There does appear to be a small subchorionic hemorrhage adjacent to the gestational sac. This measures 1.2 x 0.7 x 1.4 cm. There is no pelvic mass or free fluid collection evident. The ovaries could not be visualized. IMPRESSION: 1. There is a single live intrauterine of approximately 10 weeks 2 days gestation, +/- 1 week. The EDC is March 04, 2019. 2. There are no obvious abnormalities identified. Recommendations as above. 3. There does appear to be a small subchorionic hemorrhage. Dictated on workstation # [id number] Dict: 08/08/18 1601 Trans: 08/08/18 1613 [id number] Interpreted by: ÁNGEL MAYES MD Electronically signed by: Departure Impression Primary Impression: Nausea/vomiting in Additional Impression: Abdominal pain affecting Disposition: HOME, SELF-CARE Condition: Stable Departure-Patient Inst. Decision time for Depature: 16:26 Referrals: [facility] (PCP) Primary Care Physician RANDY RAMIREZ (Family) Primary Care Physician Patient Instructions: Nausea and Vomiting of (DC) Add. Discharge Instructions: 1. You did have a very small subchorionic hemorrhage which is a collection of blood between the placenta and the uterine wall. This may result in some spotting that you notice when he wiped for the next couple of days. Only rarely does one this size resulted in miscarriage. Follow-up with your security flex utility officer or family practice provider later this week for recheck. Take nausea medication as directed. All discharge instructions reviewed with patient and/or family. Voiced understanding. Scripts Doxylamine/Pyridoxine HCl (Andre Srivastava 10-10 mg Tablet) 1 Each Tablet. 2 EACH PO HS, #20 TAB Prov: CRUZITO HOLMAN APRN 08/08/18 Work/School Note: Work Release Form Date Seen in the Emergency Department: Aug 08, 2018 Return to Work: Aug 09, 2018 CRUZITO HOLMAN APRN Aug 08, 2018 16:18
[2018-08-08 16:23] LABS: BACTERIA,URINE FEW /HPF; WBC,URINE 0-2 /HPF
[2018-08-08 16:25] LABS: BUN/CREATININE RATIO 10; CARBON DIOXIDE 22 MMOL/L (21-32); CHLORIDE 103 MMOL/L (98-107); CREATININE SERUM 0.61 MG/DL (0.60-1.30); POTASSIUM 3.7 MMOL/L (3.6-5.0); SODIUM 135 MMOL/L (135-145)
[2018-08-08 16:26] LABS: CALCIUM 9.4 MG/DL (8.5-10.1); GFR ESTIMATED > 60; GLUCOSE 80 MG/DL (70-105)
[2018-08-08] MEDS ORDERED: DOXY1TAB3 PO (16:29)
[2018-08-08] MEDS ORDERED: NS IV 1000 ML 1,000 ML IV SCH (16:30)
[2018-08-08] MEDS ORDERED: PROMETHAZINE INJ 25 MG/ML (PHENERGAN) AMP IVP ONE (16:30)
[2018-08-08 17:11] VITALS: BP 129/76
== END 2018-08-08 17:11 | disposition home or self-care (01) ==
LOC: EDUNIT# 14:48 → ER 14:49
DX: O21.9 Vomiting of pregnancy, unspecified (principal); O26.891 Other specified pregnancy related conditions, first trimester; Z3A.10 10 weeks gestation of pregnancy; Z91.041 Radiographic dye allergy status
CPT/HCPCS: 36415; 76801; 80048; 81000; 84702; 85025

== ENCOUNTER 2018-10-18 21:42 | Outpatient (CLI) | payer MEDICAID, OTHER ==
[~2018-10-18] VITALS: Ht 165.1 cm; Wt 80.0 kg
[~2018-10-18 21:42] MED LIST changes: +DOXY1TAB3 PO
--- NOTE | 2018-10-18 21:54 | NUR ---
EMELIA APPLE presented to unit via ambulation from ED registration, accompanied by self, with c/o BACK PAIN. EMELIA APPLE weighed, gowned, voided, and to bed. EFHM and TOCO applied, VS taken. EMELIA APPLE oriented to bed controls, call light, TV, heat, and A/C controls. ht wt obtained, chainging into gown, assessments to follow per cornelio ayers.
--- NOTE | 2018-10-18 22:17 | NUR ---
DR HAMLIN NOTIFIED OF PT ARRIVAL AND STATUS. NO CONTRACTIONS NOTED, FHT'S DOPPLER 150'S. CERVIX CLOSED. NO BLEEDING OR LEAKING FLUID. ORDERS RECEIVED TO SEND UA AND CULTURE. DISCHARGE PT HOME AND FOLLOW UP WITH TOMORROW.
[2018-10-18 22:55] VITALS: BP 112/69
--- NOTE | 2018-10-18 22:55 | NUR ---
DISCHARGE INSTRUCTIONS GIVEN TO PT. VERBALIZED UNDERSTANDING. DISCHARGED HOME AMBULATORY TO PRIVATE VEHICLE.
[2018-10-18 22:56] LABS: BILIRUBIN,URINE NEGATIVE (NEGATIVE); CLARITY,URINE CLEAR; COLOR,URINE YELLOW; GLUCOSE, URINE (UA) NEGATIVE (NEGATIVE); KETONES,URINE NEGATIVE (NEGATIVE); LEUKOCYTE ESTERASE ,URINE 1+ (NEGATIVE); NITRITE,URINE NEGATIVE (NEGATIVE); PH,URINE 7 (5-9); PROTEIN,URINE 1+ (NEGATIVE); UROBILINOGEN,URINE 1 MG/DL (NORMAL)
[2018-10-18 23:03] LABS: BACTERIA,URINE FEW /HPF; RBC,URINE 0-2 /HPF; SQUAMOUS EPITHELIAL CELL,UR 25-50 /HPF
--- NOTE | 2018-10-19 10:28 | Physician Query-Final Dx ---
EDOUARD FREITAS 10/19/18 1028: Clinic Account Progress/Dx Physician Query: Please give a diagnosis and include the weeks of gestation thank you Date of Service Oct 18, 2018 at 21:42 BREONNA HAMLIN MD 10/20/18 0751: Clinic Account Progress/Dx DIAGNOSIS: Diagnosis 18 weeks gestation no care. Urinary Tract infection EDOUARD FREITAS Oct 19, 2018 10:28 BREONNA HAMLIN MD Oct 20, 2018 07:51
== END 2018-10-18 22:55 | disposition home or self-care (01) ==
LOC: WSo 21:42 → LDRP 21:42 → WSo 22:55
PROVIDERS: ATTEND Obstetrics & Gynecology
DX: O23.42 Unspecified infection of urinary tract in pregnancy, second trimester (principal); O09.32 Supervision of pregnancy with insufficient antenatal care, second trimester; Z3A.18 18 weeks gestation of pregnancy
CPT/HCPCS: 81000; 99213

== ENCOUNTER 2018-10-19 09:31 | Outpatient (CLI) | payer MEDICAID ==
[~2018-10-19] VITALS: Ht 165.1 cm; Wt 81.0 kg
--- NOTE | 2018-10-19 09:24 | NUR ---
EMELIA APPLE presented to unit via ambulation, with c/o LOWER BACK PAIN. EMELIA APPLE weighed, gowned, voided, and to bed. EFHM and TOCO applied, VS taken. EMELIA APPLE oriented to bed controls, call light, TV, heat, and A/C controls.
--- NOTE | 2018-10-19 09:30 | NUR ---
Dr. Farias called prior to pt arrival to give orders. Orders for OB US, US of kidneys and ureters, and labs.
--- NOTE | 2018-10-19 09:30 | NUR ---
FHR 140's via doppler.
[2018-10-19 09:35] VITALS: BP 115/74
[2018-10-19 10:18] LABS: BASOPHILS % (AUTO) 0 % (0-10); EOSINOPHILS # (AUTO) 0.1 10^3/uL (0.0-0.3); EOSINOPHILS % (AUTO) 1 % (0-10); HEMATOCRIT 34 % (35-52); HEMOGLOBIN 11.5 G/DL (11.5-16.0); LYMPHOCYTES % (AUTO) 21 % (12-44); MEAN CORPUSCULAR HEMOGLOBIN 30 PG (25-34); MEAN CORPUSCULAR HGB CONC 34 G/DL (32-36); MEAN CORPUSCULAR VOLUME 88 FL (80-99); MEAN PLATELET VOLUME 9.8 FL (7.4-10.4); MONOCYTES # (AUTO) 0.4 X 10^3 (0.0-1.0); MONOCYTES % (AUTO) 4 % (0-12); NEUTROPHILS # (AUTO) 6.9 X 10^3 (1.8-7.8); NEUTROPHILS % (AUTO) 74 % (42-75); PLATELET COUNT 259 10^3/uL (130-400); RED CELL DISTRIBUTION WIDTH 14.6 % (10.0-14.5); WHITE BLOOD COUNT 9.4 10^3/uL (4.3-11.0)
--- NOTE | 2018-10-19 11:15 | NUR ---
Dr Farias updated on pt status, waiting for report on US. Order for clean catch UA/culture
--- NOTE | 2018-10-19 11:51 | Diagnostic Imaging Report ---
INDICATION: Low-back pain. There is a single live fetus in a breech presentation. heart rate was recorded at 147 beats per minute. Placenta is anterior. The amniotic fluid volume is normal. Cervical length is 3.5 cm. IMPRESSION: Unremarkable limited OB ultrasound. No complicating features are detected. Dictated by: Dictated on workstation # [id number]
--- NOTE | 2018-10-19 11:53 | Diagnostic Imaging Report ---
PROCEDURE: US Renal Bilateral. TECHNIQUE: Multiple real-time grayscale images were obtained over the kidneys in various projections bilaterally. INDICATION: Low back pain. FINDINGS: Right kidney measures 14.1 x 6.5 x 5.1 cm and the left kidney measures 12.1 x 5.3 x 4.7 cm. Cortical thickness and echogenicity is normal. No calculi are seen although right renal pelvis is mildly prominent. Images of the bladder demonstrate the left ureteral jet. The right ureteral jet was not visualized. IMPRESSION: Mild right pelviectasis. The right ureteral jet was not visualized after observing for up to 5 minutes. Renal or ureteral calculi were not definitely visualized but cannot be entirely excluded. Dictated by: Dictated on workstation # [id number]
[2018-10-19 11:59] LABS: BILIRUBIN,URINE NEGATIVE (NEGATIVE); CLARITY,URINE CLEAR; COLOR,URINE YELLOW; GLUCOSE, URINE (UA) NEGATIVE (NEGATIVE); KETONES,URINE NEGATIVE (NEGATIVE); LEUKOCYTE ESTERASE ,URINE 1+ (NEGATIVE); NITRITE,URINE NEGATIVE (NEGATIVE); PH,URINE 7 (5-9); PROTEIN,URINE NEGATIVE (NEGATIVE); UROBILINOGEN,URINE NORMAL (NORMAL)
[2018-10-19 12:06] LABS: BACTERIA,URINE TRACE /HPF
--- NOTE | 2018-10-19 12:42 | NUR ---
Dr. Farias called, notified of UA and US reports. Order to call in macrobid 100mg BID x7 days and D/C to home with appt for next week.
--- NOTE | 2018-10-19 13:05 | NUR ---
Discharge instructions explained to pt with copy provided to pt. Pt notified of script at [facility] and instructed on when and how to take. Notified of follow up appt. Pt verbalizes instruction of teaching. Denies questions or concerns. Ambulates self off unit to private vehicle
== END 2018-10-19 13:05 | disposition home or self-care (01) ==
LOC: LDRP 09:31 → WSo 09:31
PROVIDERS: ATTEND Obstetrics & Gynecology
DX: O99.89 Other specified diseases and conditions complicating pregnancy, childbirth and the puerperium (principal); M54.9 Dorsalgia, unspecified; Z3A.20 20 weeks gestation of pregnancy
CPT/HCPCS: 36415; 76770; 76815; 81000; 84443; 85025; 86703; 86780; 86850; 86900; 86901; 87088; 87340; 99214

== ENCOUNTER 2018-12-18 13:32 | Outpatient (CLI) | payer SELFPAY ==
--- NOTE | 2018-12-18 13:30 | NUR ---
EMELIA APPLE presented to unit via AMB from HOME, accompanied by FAMILY, with c/o RHOGAM INJECTION. DIRECTED TO WAITING ROOM UNTIL RHOGAM READY.
[2018-12-18 14:05] VITALS: BP 127/83
--- NOTE | 2018-12-18 14:10 | NUR ---
RHOGAM 1 VIAL GIVEN IM IN THE LEFT VG SITE. SITE CLEAR.
[2018-12-18 14:20] VITALS: BP 128/81
--- NOTE | 2018-12-18 14:20 | NUR ---
VSS. DISMISSED AMB FROM WS IN STABLE CONDITION ACC BY FAMILY.
== END 2018-12-18 14:20 | disposition home or self-care (01) ==
LOC: WSo 13:32
PROVIDERS: ATTEND Obstetrics & Gynecology
DX: Z31.82 Encounter for Rh incompatibility status (principal)
CPT/HCPCS: 96372

== ENCOUNTER 2019-01-23 20:35 | Outpatient (CLI) | payer MEDICAID ==
[~2019-01-23] VITALS: Ht 165.1 cm; Wt 84.0 kg
--- NOTE | 2019-01-23 20:40 | NUR ---
EMELIA APPLE presented to unit via wc from ED, accompanied by family , with c/o CONTRACTIONS. EMELIA APPLE weighed, gowned, voided, and to bed. EFHM and TOCO applied, VS taken. EMELIA APPLE oriented to bed controls, call light, TV, heat, and A/C controls. Assessments to follower per JB ANAYA.
[2019-01-23 20:50] VITALS: BP 116/74
--- NOTE | 2019-01-23 21:00 | NUR ---
Pt states having "contraction pain" all day every 10min. pt states it is in the lower abdomen, cramping and tightening feeling, denies pain in upper abdomen or top of fundus. pt's urine is derik in color, urine dip done and reported to at this time.
[2019-01-23] MEDS ORDERED: D5 LR IV SOLUTION 1,000 ML IV ONE (21:15)
--- NOTE | 2019-01-23 21:45 | NUR ---
fresh ice water given. pt states has not felt pain since she has been laying down.
[2019-01-23 22:40] VITALS: BP 128/97
--- NOTE | 2019-01-23 22:48 | NUR ---
pt removed from external monitors. 1582 discharge instructions read and reviewed with pt. pt verbalized understanding.
--- NOTE | 2019-01-23 22:58 | NUR ---
pt ambulated off unit with friends. no s/s of distress noted.
--- NOTE | 2019-01-26 14:08 | Physician Query-Final Dx ---
EDOUARD FREITAS 01/26/19 1408: Final Diagnosis Give Final Diagnosis Please give Final Diagnosis Dr Farias Please give the weeks of gestation thank you BREONNA FARIAS MD 01/27/19 0735: Final Diagnosis Give Final Diagnosis 34 weeks/FUNGAL vaginitis EDOUARD FREITAS Jan 26, 2019 14:08 BREONNA FARIAS MD Jan 27, 2019 07:35
== END 2019-01-23 22:58 | disposition home or self-care (01) ==
LOC: LDRP 20:35 → WSo 20:35
PROVIDERS: ATTEND Obstetrics & Gynecology
DX: O47.03 False labor before 37 completed weeks of gestation, third trimester (principal); O98.813 Other maternal infectious and parasitic diseases complicating pregnancy, third trimester; B37.3 Candidiasis of vulva and vagina; Z3A.34 34 weeks gestation of pregnancy
CPT/HCPCS: 96360; 99214

== ENCOUNTER 2019-01-25 14:11 | Outpatient (CLI) | payer MEDICAID ==
[~2019-01-25] VITALS: Ht 165.1 cm; Wt 84.4 kg
--- NOTE | 2019-01-25 14:17 | NUR ---
EMELIA APPLE presented to unit via wheelchair from ED, accompanied by friend, with c/o LEAKING FLUID. EMELIA APPLE weighed, gowned, voided, and to bed. EFHM and TOCO applied, VS taken. EMELIA APPLE oriented to bed controls, call light, TV, heat, and A/C controls.
[2019-01-25 14:30] VITALS: BP 129/75
[2019-01-25 14:50] VITALS: BP 116/67
--- NOTE | 2019-01-25 14:53 | NUR ---
Dr. Farias called and notified of pt arrival, c/o losing mucous plug last night and leaking since. Pt reports occasional ctx, but feels more "like she's just dilating". notified of history, pt presenting to unit 2 days ago w/ ctx/dehydration, UA, FHR, ctx pattern, SVE, VS, vaginal discharge, and other assessment findings. Orders rec'd for wet prep, UDS, fern test.
[2019-01-25 15:05] VITALS: BP 119/66
[2019-01-25 15:20] VITALS: BP 114/65
[2019-01-25 15:35] VITALS: BP 114/69
[2019-01-25 15:50] VITALS: BP 114/66
[2019-01-25 15:50] LABS: AMPHETAMINE SCREEN, URINE NEGATIVE (NEGATIVE); BARBITURATE SCREEN URINE NEGATIVE (NEGATIVE); BENZODIAZEPINES SCREEN URINE NEGATIVE (NEGATIVE); CANNABINOID SCREEN, URINE POSITIVE (NEGATIVE); COCAINE SCREEN URINE NEGATIVE (NEGATIVE); METHADONE STAT NEGATIVE (NEGATIVE); METHAMPHETAMINE SCREEN URINE S NEGATIVE (NEGATIVE); OPIATE SCREEN URINE NEGATIVE (NEGATIVE); OXYCODONE STAT NEGATIVE (NEGATIVE); PROPOXYPHENE STAT NEGATIVE (NEGATIVE); TRICYCLIC ANTIDEPRESSANTS SCRE NEGATIVE (NEGATIVE)
--- NOTE | 2019-01-25 15:52 | NUR ---
Dr. Farias called, wet prep, UDS, fern test results reported. Orders rec'd for 200mg Diflucan now, then 200mg Diflucan x3 every other day, and D/C pt home.
--- NOTE | 2019-01-25 15:57 | NUR ---
Melvina called to [facility].
[2019-01-25] MEDS ORDERED: fluCOnazole (DIFLUCAN) 100 MG TAB PO ONE (16:00)
--- NOTE | 2019-01-25 16:27 | NUR ---
Discharge instructions explained to pt with copy provided to pt. Pt notified of script available at [facility], and to follow up with as schedule. Pt verbalizes understanding of instruction, signs to verify. Pt denies questions or concerns at this time. Ambulates off unit accompanied by friend to private vehicle with all personal belongings. No s/s of distress noted.
== END 2019-01-25 16:27 | disposition home or self-care (01) ==
LOC: LDRP 14:11 → WSo 14:11
PROVIDERS: ATTEND Obstetrics & Gynecology
DX: O41.93X0 Disorder of amniotic fluid and membranes, unspecified, third trimester, not applicable or unspecified (principal); Z3A.34 34 weeks gestation of pregnancy
CPT/HCPCS: 36415; 80306; 87210; 89060; 99214

== ENCOUNTER → 2019-02-12 | Outpatient (CLI) | payer MEDICAID ==
[~2019-02-12] MED LIST changes: +PREN-8 PO
== END ==
LOC: LABNPT 10:55
PROVIDERS: ATTEND Obstetrics & Gynecology
DX: O28.8 Other abnormal findings on antenatal screening of mother (principal)
CPT/HCPCS: 82570; 84156

== ENCOUNTER 2019-02-13 16:37 | Outpatient (CLI) | payer MEDICAID ==
[~2019-02-13] VITALS: Ht 165.1 cm; Wt 84.4 kg
[~2019-02-13 16:37] MED LIST changes: -PREN-8 PO
--- NOTE | 2019-02-13 16:48 | NUR ---
EMELIA APPLE presented to unit via AMBULATION from ED, accompanied by MOTHER, with c/o HEADACHES,VOMITING. EMELIA APPLE weighed, gowned, voided, and to bed. EFHM and TOCO applied, VS taken. EMELIA APPLE oriented to bed controls, call light, TV, heat, and A/C controls.
[2019-02-13 16:59] VITALS: BP 120/79
[2019-02-13 17:30] VITALS: BP 116/72
--- NOTE | 2019-02-13 17:40 | NUR ---
DR HAMLIN CALLED, NEW ORDERS RECEIVED, PLAN OF CARE UPDATED WITH PT/MOTHER, NO QUESTIONS NOTED.
[2019-02-13 17:41] LABS: BILIRUBIN,URINE NEGATIVE (NEGATIVE); CLARITY,URINE CLEAR; COLOR,URINE YELLOW; GLUCOSE, URINE (UA) NEGATIVE (NEGATIVE); KETONES,URINE 1+ (NEGATIVE); LEUKOCYTE ESTERASE ,URINE 3+ (NEGATIVE); NITRITE,URINE NEGATIVE (NEGATIVE); PH,URINE 6 (5-9); PROTEIN,URINE 2+ (NEGATIVE); UROBILINOGEN,URINE 1 MG/DL (NORMAL)
[2019-02-13 18:00] VITALS: BP 119/74
[2019-02-13 18:04] LABS: BACTERIA,URINE TRACE /HPF
[2019-02-13 18:20] LABS: BASOPHILS % (AUTO) 0 % (0-10); EOSINOPHILS # (AUTO) 0.1 10^3/uL (0.0-0.3); EOSINOPHILS % (AUTO) 1 % (0-10); HEMATOCRIT 33 % (35-52); HEMOGLOBIN 11.1 G/DL (11.5-16.0); LYMPHOCYTES # (AUTO) 1.8 X 10^3 (1.0-4.0); LYMPHOCYTES % (AUTO) 22 % (12-44); MEAN CORPUSCULAR HEMOGLOBIN 29 PG (25-34); MEAN CORPUSCULAR HGB CONC 33 G/DL (32-36); MEAN CORPUSCULAR VOLUME 88 FL (80-99); MEAN PLATELET VOLUME 10.1 FL (7.4-10.4); MONOCYTES # (AUTO) 0.5 X 10^3 (0.0-1.0); MONOCYTES % (AUTO) 6 % (0-12); NEUTROPHILS # (AUTO) 5.8 X 10^3 (1.8-7.8); NEUTROPHILS % (AUTO) 71 % (42-75); PLATELET COUNT 288 10^3/uL (130-400); RED CELL DISTRIBUTION WIDTH 14.6 % (10.0-14.5); WHITE BLOOD COUNT 8.3 10^3/uL (4.3-11.0)
[2019-02-13 18:45] VITALS: BP 106/73
[2019-02-13 18:46] LABS: ALANINE AMINOTRANSFERASE 13 U/L (0-55); ALBUMIN 3.5 GM/DL (3.2-4.5); ALKALINE PHOSPHATASE 109 U/L (40-136); BILIRUBIN,TOTAL 0.2 MG/DL (0.1-1.0); BUN/CREATININE RATIO 12; CALCIUM 9.3 MG/DL (8.5-10.1); CARBON DIOXIDE 18 MMOL/L (21-32); CHLORIDE 106 MMOL/L (98-107); GFR ESTIMATED > 60; GLUCOSE 74 MG/DL (70-105); SODIUM 135 MMOL/L (135-145); TOTAL PROTEIN 6.7 GM/DL (6.4-8.2); URIC ACID 3.5 MG/DL (2.6-7.2)
--- NOTE | 2019-02-13 18:51 | NUR ---
DR HAMLIN CALLED, UPDATE GIVEN, NEW ORDERS, ADMINISTER 1 LITER LR OVER 2 HOURS THEN D/C HOME WITH LABOR PRECAUTIONS.
[2019-02-13] MEDS ORDERED: LACTATED RINGERS 1,000 ML IV SCH (19:00)
--- NOTE | 2019-02-13 19:00 | NUR ---
EFM AND TOCO DISCONTINUED.
--- NOTE | 2019-02-13 19:05 | NUR ---
IV STARTED X 1 STICK TO PTS RT HAND, LR INFUSING, PT TOLERATED WELL.
--- NOTE | 2019-02-13 19:22 | NUR ---
REPORT TO ROBERT ANAYA.
[2019-02-13 21:10] VITALS: BP 110/67
--- NOTE | 2019-02-13 21:10 | NUR ---
D/C instructions given & explained, pt. verbalized understanding & signed, copy of D/C instructions to pt. Pt. left [facility] ambulatory escorted by mother, to home via private vehicle.
== END 2019-02-13 21:10 | disposition home or self-care (01) ==
LOC: LDRP 16:37 → WSo 16:37
PROVIDERS: ATTEND Obstetrics & Gynecology
DX: O99.89 Other specified diseases and conditions complicating pregnancy, childbirth and the puerperium (principal); R51 Headache; Z3A.37 37 weeks gestation of pregnancy
CPT/HCPCS: 36415; 80053; 81000; 82570; 83615; 84156; 84550; 85025; 87088

== ENCOUNTER 2019-02-15 13:32 | Outpatient (CLI) | payer MEDICAID ==
[~2019-02-15] VITALS: Ht 165.1 cm; Wt 84.8 kg
[~2019-02-15 13:32] MED LIST changes: -PNV11TAB5 PO; -PREN-8 PO
[2019-02-15] MEDS ORDERED: PREN-8 PO (14:53)
== END 2019-02-15 14:59 | disposition home or self-care (01) ==
LOC: PREOP 13:32
PROVIDERS: ATTEND Obstetrics & Gynecology
DX: Z01.818 Encounter for other preprocedural examination (principal)

== ENCOUNTER → 2019-02-15 | Outpatient (CLI) | payer MEDICAID ==
[~2019-02-15] MED LIST changes: +PNV11TAB5 PO; +PREN-8 PO
== END ==
LOC: LABNPT 10:36
PROVIDERS: ATTEND Obstetrics & Gynecology
DX: O28.8 Other abnormal findings on antenatal screening of mother (principal); Z3A.00 Weeks of gestation of pregnancy not specified
CPT/HCPCS: 82570; 84156

== ENCOUNTER 2019-02-19 10:10 | Inpatient (IN) | payer MEDICAID ==
[~2019-02-19] VITALS: Ht 165.1 cm; Wt 84.1 kg
[2019-02-19] VITALS (8 sets, daily range): BP systolic 97–129; BP diastolic 68–84
[~2019-02-19 10:10] MED LIST changes: +PREN-8 PO
--- NOTE | 2019-02-19 10:10 | NUR ---
EMELIA APPLE presented to unit from home, accompanied by family, with c/o . EMELIA APPLE weighed, gowned, voided, and to bed. EFHM and TOCO applied, VS taken. EMELIA APPLE oriented to bed controls, call light, TV, heat, and A/C controls.
--- NOTE | 2019-02-19 10:33 | HISTORY AND PHYSICAL ---
DATE OF SERVICE: 02/19/2019 PREOPERATIVE HISTORY AND PHYSICAL HISTORY OF PRESENT ILLNESS: The patient is a 18-year-old, G2, P1 white female with an EDC of 03/04/2019 putting her now at 38+ weeks' gestation. Her is complicated by oligohydramnios with an BERTRAM on 02/15/2019 measuring 50. It had shown a progressive decrease since 28 weeks of gestation. She denies rupture of membranes or bleeding. She has had no other problems with this . GBS culture done after 35 weeks gestation was negative. The patient is admitted today for repeat delivery. ALLERGIES: CONTRAST DYE, which causes vomiting and fatigue. MEDICATIONS: None. Medical, social and surgical histories are per the antepartum record. PHYSICAL EXAMINATION: HEENT: Normal. NECK: Supple. No lymphadenopathy. No thyromegaly. ABDOMEN: Gravid. Soft, nontender and nondistended. EXTREMITIES: Show no clubbing or cyanosis. There is no Homans sign. PELVIC EXAM: Deferred, although pelvic exam on 02/15/2019 shows the cervix 3+ cm dilated, 70% effaced, -1 to 0 station, soft and mid plane. LABORATORY WORK: Pending. ASSESSMENT AND PLAN: The patient is at 38+ weeks gestation with previous and with oligohydramnios. Her blood pressures have shown some progressive increase, but evaluation for preeclampsia to date has been negative. She does have a history of severe preeclampsia with prior . She is admitted now for a repeat delivery due to her oligohydramnios. Job ID: [id number] DocumentID: [id number] Dictated Date: 02/19/2019 08:54:25 Gas Scrubber Operator Date: 02/19/2019 09:18:58 Dictated By: BREONNA HAMLIN MD
[2019-02-19] MEDS ORDERED: D5 LR IV SOLUTION 1,000 ML IV SCH ×2 (10:38→13:31)
[2019-02-19] MEDS ORDERED: LACTATED RINGERS 1,000 ML IV ONE (10:43)
[2019-02-19] MEDS ORDERED: metroNIDAZOLE 500MG/100ML IVPB 100 ML ONE (10:43)
[2019-02-19] MEDS ORDERED: METOCLOPRAMIDE INJ 10 MG/2 ML (REGLAN) ONE (10:43)
[2019-02-19] MEDS ORDERED: CITRIC ACID/SOB CIT (BICITRA) 30 ML UDC ONE (10:43)
[2019-02-19] MEDS ORDERED: ceFAZolin 2 GM/50 ML NS 50 ML ONE (10:44)
[2019-02-19] MEDS ORDERED: FAMOTIDINE 20MG/2ML IV (PEPCID) ONE (10:44)
[2019-02-19] MEDS ORDERED: FAMOTIDINE 20MG/2ML IV (PEPCID) IVP ONE (10:45)
[2019-02-19] MEDS ORDERED: METOCLOPRAMIDE INJ 10 MG/2 ML (REGLAN) IV ONE (10:45)
[2019-02-19] MEDS ORDERED: ceFAZolin 2 GM/50 ML NS 50 ML IV ONE (10:45)
[2019-02-19] MEDS ORDERED: CATHETER FLUSH 10 ML SYR IV PRN (10:45)
[2019-02-19] MEDS ORDERED: CITRIC ACID/SOB CIT (BICITRA) 30 ML UDC PO ONE (10:45)
[2019-02-19] MEDS ORDERED: metroNIDAZOLE 500MG/100ML IVPB 100 ML IV ONE (10:45)
[2019-02-19 10:54] LABS: BASOPHILS % (AUTO) 0 % (0-10); EOSINOPHILS # (AUTO) 0.1 10^3/uL (0.0-0.3); EOSINOPHILS % (AUTO) 1 % (0-10); HEMATOCRIT 34 % (35-52); HEMOGLOBIN 11.4 G/DL (11.5-16.0); LYMPHOCYTES # (AUTO) 1.9 X 10^3 (1.0-4.0); LYMPHOCYTES % (AUTO) 28 % (12-44); MEAN CORPUSCULAR HEMOGLOBIN 29 PG (25-34); MEAN CORPUSCULAR HGB CONC 33 G/DL (32-36); MEAN CORPUSCULAR VOLUME 87 FL (80-99); MEAN PLATELET VOLUME 10.5 FL (7.4-10.4); MONOCYTES # (AUTO) 0.4 X 10^3 (0.0-1.0); MONOCYTES % (AUTO) 6 % (0-12); NEUTROPHILS # (AUTO) 4.5 X 10^3 (1.8-7.8); NEUTROPHILS % (AUTO) 65 % (42-75); PLATELET COUNT 242 10^3/uL (130-400); WHITE BLOOD COUNT 6.8 10^3/uL (4.3-11.0)
[2019-02-19] MEDS: LACTATED RINGERS 1,000 ML IV SCH ×3 (10:55→12:58)
[2019-02-19] MEDS ORDERED: PNV11TAB5 PO (11:18)
[2019-02-19] MEDS ORDERED: KETAMINE/NaCl 50 MG/5 ML SYRINGE ONE (11:38)
[2019-02-19] MEDS ORDERED: fentaNYL INJECTION 100 MCG/2 ML AMP ONE (11:38)
[2019-02-19] MEDS ORDERED: KETOROLAC 30 MG/ML VIAL ONE (12:17)
[2019-02-19] MEDS ORDERED: OXYTOCIN/NORMAL SALINE 500 ML IV ONE ×3 (12:17→12:42)
[2019-02-19] MEDS ORDERED: BUPIVACAINE 0.5% 30 ML (SENSORCAINE) VIAL ONE (12:40)
[2019-02-19] MEDS ORDERED: PHENYLEPHRINE 100 MCG/ML 10 ML (ANESTHESIA) SYR ONE (12:54)
[2019-02-19] MEDS ORDERED: IBUPROFEN 800 MG (MOTRIN) TAB PO SCH (13:30)
[2019-02-19] MEDS ORDERED: KETOROLAC 30 MG/ML VIAL IVP PRN (13:45)
[2019-02-19] MEDS ORDERED: MEASLES,MUMPS,RUBELLA 1 EA INJ SC ONE (13:45)
[2019-02-19] MEDS ORDERED: TETANUS,DIPTH,PERTUSS P/F (BOOSTRIX) 0.5 ML VIAL IM ONE (13:45)
[2019-02-19] MEDS ORDERED: ONDANSETRON 4 MG/2 ML (SDV) Z0FRAN IVP PRN (13:45)
[2019-02-19] MEDS: OXYTOCIN/NORMAL SALINE 500 ML IV SCH ×2 (14:00→18:00)
--- NOTE | 2019-02-19 14:00 | NUR ---
Report from Asad Cruz RN.
--- NOTE | 2019-02-19 14:28 | NUR ---
Fundus firm U/2 with small rubra lochia noted. No clots.
[2019-02-19] MEDS: oxyCODONE/APAP 10/325MG (PERCOCET 10) TABLET PO PRN ×2 (16:12→21:19)
--- NOTE | 2019-02-19 16:12 | NUR ---
Percocet 2 PO given for patient's c/o pain rated 7/10.
--- NOTE | 2019-02-19 17:50 | NUR ---
Patient assisted up to restroom. Patient unable to void at this time.
--- NOTE | 2019-02-19 18:02 | OPERATIVE REPORT ---
DATE OF SERVICE: 02/19/2019 PREOPERATIVE DIAGNOSES: Term at 38 weeks' gestation with previous section and with oligohydramnios. POSTOPERATIVE DIAGNOSES: Term at 38 weeks' gestation with previous section and with oligohydramnios. OPERATIVE PROCEDURE: Repeat low transverse delivery of a viable female with Apgars of 8 and 7 at one and five minutes respectively, weight 6 pounds and 3 ounces. Cord blood gases pending and a time of 12:32. OPERATIVE DESCRIPTION: With the patient in the supine position under satisfactory spinal analgesia, she was prepped and draped in the usual fashion for abdominal surgery. Jiménez catheter was placed in the urinary bladder. A repeat Pfannenstiel incision made through the skin by removing the patient's previous Pfannenstiel incisional scar. The abdomen was entered in the usual manner. Bladder retractor placed into position and clean scalpel used to make a 4 cm hysterotomy incision transversely across the lower uterine segment. A very small amount of amniotic fluid was released on hysterotomy. The incision was extended transversely. A vigorous viable female was delivered via the uterine incision. There was a nuchal cord x1 that was easily released after delivery of the head. The delivery was completed. The baby was bulb suctioned as the cord was doubly clamped and cut and the passed to the pediatric nurse in attendance for delivery. Cord bloods were obtained. Placenta was delivered spontaneously Tariq. It was normal with a 3-vessel cord. The uterus was exteriorized and interior wiped clean with a wet laparotomy sponge. Uterine incision closed with a running locked suture of 2-0 Vicryl. Hemostasis was complete. The uterus was returned to abdominal cavity. All blood clot and debris removed from the abdominal cavity. With sponge, needle counts correct, hemostasis assured. Anterior parietal peritoneum was closed with running suture of 2-0 Vicryl. Rectus muscles were closed with that suture as well. The rectus fascia was closed with 2-0 Vicryl, subcutaneous tissue with 2-0 Vicryl and the skin was stapled. Sponge and needle counts were correct on completion of the procedure. Estimated blood loss was around 400 mL. The patient tolerated the procedure well and was transferred to the recovery room in stable condition. The had been taken at the bedside warmer and remained there for the duration of the procedure. Job ID: [id number] DocumentID: [id number] Dictated Date: 02/19/2019 12:53:45 Educational Resource Coordinator Date: 02/19/2019 18:02:00 Dictated By: BREONNA HAMLIN MD
--- NOTE | 2019-02-19 18:20 | NUR ---
Straight cath performed. 250 cc concentrated urine noted. Pericare completed.
--- NOTE | 2019-02-19 19:10 | NUR ---
Report to Marcia Brown RN.
[2019-02-19] MEDS: KETOROLAC 30 MG/ML VIAL IVP SCH (19:18)
[2019-02-19] MEDS ORDERED: KETOROLAC 30 MG/ML VIAL IVP SCH (19:30)
[2019-02-19] MEDS: DOCUSATE SODIUM 100 MG (COLACE) CAP PO SCH (21:19)
[2019-02-20] VITALS: BP 129/91
[2019-02-20] MEDS: KETOROLAC 30 MG/ML VIAL IVP SCH ×2 (00:50→09:55)
[2019-02-20] MEDS: oxyCODONE/APAP 10/325MG (PERCOCET 10) TABLET PO PRN ×2 (01:19→06:38)
[2019-02-20 03:50] VITALS: BP 117/78
[2019-02-20] MEDS ORDERED: IBUPROFEN 800 MG (MOTRIN) TAB PO ONE (06:22)
[2019-02-20] MEDS: IBUPROFEN 800 MG (MOTRIN) TAB PO SCH ×3 (06:31→18:48)
[2019-02-20] MEDS ORDERED: KETOROLAC 30 MG/ML VIAL IVP SCH (07:00)
--- NOTE | 2019-02-20 07:00 | NUR ---
REPORT FROM PABLO ANAYA
--- NOTE | 2019-02-20 07:15 | NUR ---
DR HAMLIN HERE NEW ORDERS RECEIVED.
--- NOTE | 2019-02-20 07:58 | Progress Note ---
Standard Progress Note Progress Notes/Assess & Plan Date Seen by a Provider: Feb 20, 2019 Time Seen by a Provider: 07:57 Progress/Assessment & Plan Patient complains of pain that is not adequately controlled with Percocet. She is ambulating, voiding, tolerating oral intake well. She denies chest pain, denies shortness of breath, denies nausea vomiting, and denies headache Vital Signs 02/19/19 02/20/19 16:07 03:50 Temp 97.0 Pulse 94 Resp 18 B/P (MAP) 117/78 (91) Pulse Ox 96 O2 Delivery Room Air Vital signs are stable. Patient is afebrile. The abdomen is benign. The surgical incision is clean dry and intact. There is some mild tympany. The fundus is firm below the umbilicus nontender. Extremities show no clubbing or cyanosis. There is no Homans sign. There is some pretibial pitting edema that is normal. Assessment and plan postoperative day number 1 status post repeat delivery. Patient generally is doing well we will change to Lorcet FROM the Percocet to see if we get better pain control BREONNA HAMLIN MD Feb 20, 2019 07:58
[2019-02-20 08:50] VITALS: BP 140/78
[2019-02-20] MEDS: DOCUSATE SODIUM 100 MG (COLACE) CAP PO SCH ×2 (08:50→20:09)
--- NOTE | 2019-02-20 08:50 | NUR ---
INITIAL ASSESSMENT COMPLETED, VSS, SEE INTERVENTIONS FOR DETAILED ASSESSMENTS, PLAN OF CARE EXPLAINED AND UPDATED WITH PT, NO QUESTIONS OR CONCERNS NOTED. REMAINS IN MOTHERS ROOM IN OPEN CRIB.
--- NOTE | 2019-02-20 09:30 | NUR ---
PT UP TO BR, AMBULATING WELL IN ROOM WITHOUT ASSISTANCE. VOIDED, ABDOMINAL BINDER APPLIED WITH ASSISTANCE FROM ELIZABETH AND ALISTAIR. WILL MONITOR CLOSELY.
[2019-02-20 12:00] VITALS: BP 130/71
[2019-02-20] MEDS: HYDROcodone/APAP 10 MG/325 MG (LORTAB) TAB PO PRN ×2 (13:04→20:10)
--- NOTE | 2019-02-20 14:06 | Anesthesia-Regional Post-Op ---
Regional Patient Condition Mental Status: Alert, Oriented x3 Circulation: Same as Pre-Op Headache: Absent Sensation: Full Recovery Motor Block: Absent Post Op Complications Complications None Follow Up Care/Instructions Patient Instructions None needed. Anesthesia/Patient Condition Patient is doing well, no complaints, stable vital signs, no apparent adverse anesthesia problems. REINA VENEGAS DO Feb 20, 2019 14:06
[2019-02-20 17:58] VITALS: BP 117/76
[2019-02-21 00:43] VITALS: BP 133/90
[2019-02-21] MEDS: IBUPROFEN 800 MG (MOTRIN) TAB PO SCH ×3 (00:43→12:18)
[2019-02-21] MEDS: HYDROcodone/APAP 10 MG/325 MG (LORTAB) TAB PO PRN ×2 (02:50→10:23)
[2019-02-21 05:54] VITALS: BP 115/77
--- NOTE | 2019-02-21 08:08 | Progress Note ---
Standard Progress Note Progress Notes/Assess & Plan Date Seen by a Provider: Feb 21, 2019 Time Seen by a Provider: 08:07 Progress/Assessment & Plan Patient complains of pain that is not adequately controlled with Percocet. She is ambulating, voiding, tolerating oral intake well. She denies chest pain, denies shortness of breath, denies nausea vomiting, and denies headache Vital Signs 02/19/19 02/20/19 16:07 03:50 Temp 97.0 Pulse 94 Resp 18 B/P (MAP) 117/78 (91) Pulse Ox 96 O2 Delivery Room Air Vital signs are stable. Patient is afebrile. The abdomen is benign. The surgical incision is clean dry and intact. There is some mild tympany. The fundus is firm below the umbilicus nontender. Extremities show no clubbing or cyanosis. There is no Homans sign. There is some pretibial pitting edema that is normal. Assessment and plan postoperative day number 1 status post repeat delivery. Patient generally is doing well we will change to Lorcet FROM the Percocet to see if we get better pain control February 21, 2019 Patient without complaint. She is ambulating, voiding, tolerating oral intake well has adequate pain control. She is requesting discharge home. Vital Signs Date Time Temp Pulse Resp B/P (MAP) Pulse Ox O2 Delivery O2 Flow Rate FiO2 02/21/19 05:54 97.1 93 18 115/77 (90) 99 Room Air 02/21/19 00:43 97.5 100 18 133/90 (104) 100 Room Air 02/20/19 17:58 97.9 84 20 117/76 (90) 100 Room Air 02/20/19 12:00 97.6 84 20 130/71 (90) 100 Room Air 02/20/19 08:50 98.4 91 18 140/78 (98) 99 Room Air I & O 02/21/19 07:00 Intake Total 3070 ml Output Total 2800 ml Balance 270 ml Vital signs are stable. Patient is afebrile. Fundus is firm below the umbilicus and nontender. The surgical incision is clean dry and intact. Extremities show no clubbing cyanosis. It is no Homans sign. Some pretibial pitting edema that is within normal limits. Assessment and plan post operative day number 2 status post repeat delivery doing well. Plan is for discharge home with follow-up in clinic Final Diagnosis 38 week repeat delivery BREONNA HAMLIN MD Feb 21, 2019 08:08
[2019-02-21] MEDS ORDERED: IBUP-1780 PO (08:09)
[2019-02-21] MEDS ORDERED: DOCU100C37 PO (08:09)
[2019-02-21] MEDS ORDERED: OXYC-465 PO (08:09)
--- NOTE | 2019-02-21 08:10 | Discharge Instructions ---
Discharge Instructions Discharge Medications New, Converted or Re-Newed RX: RX on Chart Patient Instructions Patient Instructions: As directed Return to The Hospital For: As directed Activity & Diet Discharge Diet: No Restrictions Activity as Tolerated: No Orders-Post D/C & Referrals Follow Up Appt: RTC 1 week for incision check. Call to make follow up appt. for patient in 4 weeks. Wound Care: Remove otilio, apply benzoin and steri strips. Activity Per routine post instructions. Please call in RX to patient pharmacy. Diet as tolerated Patient may shower or tub bathe as desired. Continue home meds BREONNA HAMLIN MD Feb 21, 2019 08:10
--- NOTE | 2019-02-21 09:35 | NUR ---
report received from JACLYN Tinsley. care assumed of pt.
[2019-02-21] MEDS: DOCUSATE SODIUM 100 MG (COLACE) CAP PO SCH (10:22)
--- NOTE | 2019-02-21 10:28 | NUR ---
Rx's called into [facility] pharmacy per pt's request.
--- NOTE | 2019-02-21 10:30 | NUR ---
Kent D/C'd per Dr's orders. incision edge well approximated, no sx's of infection noted. Benzoine & Steri-Strips applied. pt tolerated well.
--- NOTE | 2019-02-21 10:45 | NUR ---
dismissal instructions given, verbalizes understanding. reviewed follow up appointment, dismissal Rx's and administration schedule. signature page singed, placed on chart.
--- NOTE | 2019-02-21 12:40 | NUR ---
pt dismissed to private vehicle via w/c with this RN, and s/o @ side. secured in rear facing carseat. pt stable, no sx's of distress noted.
== END 2019-02-21 12:40 | disposition home or self-care (01) | DRG 788 ==
LOC: LDRP 10:10 → WS 13:45 → LDRP 13:45
PROVIDERS: ADMIT Obstetrics & Gynecology; ATTEND Obstetrics & Gynecology
PROC: 10D00Z1 Extraction of Products of Conception, Low, Open Approach (ICD-10-PCS; principal; 2019-02-19 12:12)
DX: O41.03X0 Oligohydramnios, third trimester, not applicable or unspecified (principal); O34.211 Maternal care for low transverse scar from previous cesarean delivery; O69.81X0 Labor and delivery complicated by cord around neck, without compression, not applicable or unspecified; Z3A.38 38 weeks gestation of pregnancy; Z37.0 Single live birth; Z91.041 Radiographic dye allergy status
CPT/HCPCS: 36415; 83033; 85025; 86850; 86900; 86901; 87081; 94664

== ENCOUNTER 2021-12-23 10:08 | Emergency (ER) | payer SELFPAY ==
[~2021-12-23] VITALS: Ht 165 cm; Wt 84.0 kg
[~2021-12-23 10:08] MED LIST changes: +CLIN-144 PO; -CLIN300C11 PO; -OXYC-465 PO; +OXYC-556 PO; +PNV11TAB5 PO
--- NOTE | 2021-12-23 10:57 | ED General ---
General Chief Complaint: OB < 20 WEEKS Stated Complaint: VAGINAL BLEEDING,CRAMPING, Nursing Triage Note: ARRIVED VIA AMB TO ROOM 07 WITH COMPLAINTS OF VOMITING BLOOD OF THE AM WHEN SHE HAS HER MORNING SICKNESS. ALSO STATES SHE NOTICED SOME BLOOD WHEN SHE WIPED YESTERDAY ALONG WITH SOME LOWER ABD CRAMPING. PT HAS NOT TAKEN ANY PAIN MEDS. PT IS BUT DOES NOT KNOW HOW FAR ALONG SHE IS OR WHEN HER LAST LMP WAS. (JENNIFER SOLORZANO) History of Present Illness Date Seen by Provider: Dec 23, 2021 Time Seen by Provider: 10:30 Initial Comments 21 year old female of unknown gestational age presents to the ER with hematemesis, LLQ abdominal pain, and vaginal bleeding. She has had morning sickness with this and reports having small amount of blood when she threw up two days ago. Her abdominal pain began 2 days ago and she describes it as 7/10 stabbing pain in her LLQ that is worse when she moves. Yesterday when wiping after urinating she noticed small amount of bright red blood on the toilet paper. When asked why she came in today specifically instead of yesterday or the day before she didn;t have a clear reason. She has not been seen by an contact center assistant yet for this . Reports having a positive home urine test a few weeks ago and is unsure when her last period was other than that it has been quite a while [facility] Her last two deliveries were via and she had pre-eclampsia with both pregnancies. She reports both of her prior deliveries were performed by Dr. Farias. She is in a monogomous relationship with the father and denies a history of STI's. She has had some intermittent throat pain she associates with vomiting, but no fevers and no recent sick exposures she is aware of. Timing/Duration: 1-2 Days (JENNIFER SOLORZANO) Allergies and Home Medications Allergies Coded Allergies: Iodinated Contrast- Oral and IV Dye (Verified Allergy, Unknown, 01/12/17) Patient Home Medication List Docusate Sodium (Docusate Sodium) 100 Mg Capsule, 100 MG PO BID Prescribed by: BREONNA MORIN on 02/21/19 0809 Ibuprofen (Ibuprofen) 800 Mg Tablet, 800 MG PO Q6H Prescribed by: BREONNA MORIN on 02/21/19 0809 Oxycodone HCl/Acetaminophen (Oxycodone-Acetaminophen 10-325) 1 Each Tablet, 1 TAB PO Q4H PRN for PAIN-MODERATE Prescribed by: BREONNA MORIN on 02/21/19 0809 [id number]/FA/Omega3/Dha/Fish Oil ( Gummies) 1 Each Tab.chew, 2 EACH PO DAILY, (Reported) Entered as Reported by: MAGDALENO NOLASCO on 02/19/19 1118 Review of Systems Review of Systems Constitutional: No chills, No fever EENTM: throat pain; No hearing loss, No vision loss Respiratory: No cough; hemoptysis; No short of breath Cardiovascular: No chest pain, No palpitations Gastrointestinal: abdominal pain (LLQ); No constipation, No diarrhea; nausea, vomiting Genitourinary: No dysuria; frequency (normal), other (bright red blood on toilet paper yesterday after peeing.) : Yes (per home urine test) Musculoskeletal: No back pain, No muscle weakness Skin: No change in color, No lesions, No rash Psychiatric/Neurological: Denies Tingling, Denies Weakness Hematologic/Lymphatic: No Symptoms Reported Immunological/Allergic: no symptoms reported (JENNIFER SOLORZANO) Past Uttuqsl-Kuwqvh-Vslyko Hx Patient Social History Tobacco Use?: No Substance use?: No Alcohol Use?: No (JENNIFER SOLORZANO) Immunizations Up To Date PED Vaccines UTD: Yes (JENNIFER SOLORZANO) Seasonal Allergies Seasonal Allergies: No (JENNIFER SOLORZANO) Past Medical History Surgeries: Yes Respiratory: No Cardiac: No Neurological: No Hx : 3 Hx Para: 2 Hx Total # of Abortions (Sp): 0 Female Reproductive Disorders: Denies Sexually Transmitted Disease: No HIV/AIDS: No Genitourinary: No Gastrointestinal: No Musculoskeletal: No Endocrine: No HEENT: No Loss of Vision: Denies Hearing Impairment: Denies Cancer: No Psychosocial: No Integumentary: No Blood Disorders: No Adverse Reaction/Blood Tranf: No (JENNIFER SOLORZANO) Family Medical History Patient reports no known family medical history. Physical Exam Vital Signs Vital Signs - First Documented 12/23/21 10:20 Temp 36.3 Pulse 95 Resp 16 B/P (MAP) 116/73 (87) Pulse Ox 95 O2 Delivery Room Air (JEFF STRINGER MD) Vital Signs Capillary Refill : Less Than 3 Seconds (JENNIFER SOLORZANO) Height, Weight, BMI Height: 5'5.00" Weight: 185lbs. 6.0oz. [id number]; 30.00 BMI Method:Stated General Appearance: No Apparent Distress, WD/WN HEENT: PERRL/EOMI, Pharynx Normal, Moist Mucous Membranes Neck: Normal Inspection, Non Tender, Supple Respiratory: Lungs Clear, Normal Breath Sounds, No Accessory Muscle Use, No Respiratory Distress Cardiovascular: Regular Rate, Rhythm, No Murmur, Normal Peripheral Pulses Gastrointestinal: Normal Bowel Sounds; No Rebound; Tenderness (LLQ, RUQ, and Epigastric tenderness with palpation. Could not appreciate fundus on exam. ) Back: Normal Inspection, No CVA Tenderness, No Vertebral Tenderness Extremity: Normal Inspection, Normal Range of Motion, No Calf Tenderness, No Pedal Edema Neurologic/Psychiatric: Alert, Oriented x3, No Motor/Sensory Deficits Skin: Normal Color, Warm/Dry Lymphatic: No Adenopathy (JENNIFER SOLORZANO) Progress/Results/Core Measures Suspected Sepsis SIRS Temperature: Pulse: 95 Respiratory Rate: 16 Blood Pressure 116 /73 Mean: 87 (JENNIFER SOLORZANO) Results/Orders Lab Results Laboratory Tests Test 12/23/21 10:53 12/23/21 11:38 Range/Units Urine Color YELLOW Urine Clarity CLEAR Urine pH 6.0 5-9 Urine Specific Benedict 1.020 1.016-1.022 Urine Protein NEGATIVE NEGATIVE Urine Glucose (UA) NEGATIVE NEGATIVE Urine Ketones NEGATIVE NEGATIVE Urine Nitrite NEGATIVE NEGATIVE Urine Bilirubin NEGATIVE NEGATIVE Urine Urobilinogen 0.2 < = 1.0 MG/DL Urine Leukocyte Esterase NEGATIVE NEGATIVE Urine RBC (Auto) NEGATIVE NEGATIVE Urine RBC NONE /HPF Urine WBC NONE /HPF Urine Squamous Epithelial Cells 0-2 /HPF Urine Crystals NONE /LPF Urine Bacteria NEGATIVE /HPF Urine Casts NONE /LPF Urine Mucus NEGATIVE /LPF Urine Culture Indicated NO White Blood Count 6.4 4.3-11.0 10^3/uL Red Blood Count 4.18 3.80-5.11 10^6/uL Hemoglobin 13.1 11.5-16.0 g/dL Hematocrit 38 35-52 % Mean Corpuscular Volume 91 80-99 fL Mean Corpuscular Hemoglobin 31 25-34 pg Mean Corpuscular Hemoglobin Concent 34 32-36 g/dL Red Cell Distribution Width 13.2 10.0-14.5 % Platelet Count 232 130-400 10^3/uL Mean Platelet Volume 9.7 9.0-12.2 fL Immature Granulocyte % (Auto) 0 % Neutrophils (%) (Auto) 56 42-75 % Lymphocytes (%) (Auto) 36 12-44 % Monocytes (%) (Auto) 6 0-12 % Eosinophils (%) (Auto) 2 0-10 % Basophils (%) (Auto) 0 0-10 % Neutrophils # (Auto) 3.6 1.8-7.8 10^3/uL Lymphocytes # (Auto) 2.3 1.0-4.0 10^3/uL Monocytes # (Auto) 0.4 0.0-1.0 10^3/uL Eosinophils # (Auto) 0.1 0.0-0.3 10^3/uL Basophils # (Auto) 0.0 0.0-0.1 10^3/uL Immature Granulocyte # (Auto) 0.0 0.0-0.1 10^3/uL Sodium Level 138 135-145 MMOL/L Potassium Level 3.9 3.6-5.0 MMOL/L Chloride Level 107 98-107 MMOL/L Carbon Dioxide Level 19 L 21-32 MMOL/L Anion Gap 12 5-14 MMOL/L Blood Urea Nitrogen 8 7-18 MG/DL Creatinine 0.56 L 0.60-1.30 MG/DL Estimat Glomerular Filtration Rate 131 BUN/Creatinine Ratio 14 Glucose Level 87 70-105 MG/DL Calcium Level 8.6 8.5-10.1 MG/DL Human Chorionic Gonadotropin, Quant [id number] H <5 MIU/ML Serum Test, Qualitative POSITIVE NEGATIVE (JEFF STRINGER MD) My Orders Orders - JEFF STRINGER MD Hcg,Qualitative Serum (12/23/21 10:47) Cbc With Automated Diff (12/23/21 10:47) Basic Metabolic Panel (12/23/21 10:47) Ua Culture If Indicated (12/23/21 10:47) Abo Rh Type (12/23/21 10:47) Hcg,Quantitative (12/23/21 12:58) Acetaminophen Tablet (Tylenol Tablet) (12/23/21 13:45) Us Ob<14 Wks Sngle W/Transvag (12/23/21 13:47) (JEFF STRINGER MD) Medications Given in ED Current Medications Medications Dose Ordered Sig/Addison Route Start Time Stop Time Status Last Admin Dose Admin Acetaminophen 1,000 mg ONCE ONCE PO 12/23/21 13:45 12/23/21 13:46 DC 12/23/21 13:45 1,000 MG (JEFF STRINGER MD) Vital Signs/I&O 12/23/21 10:20 Temp 36.3 Pulse 95 Resp 16 B/P (MAP) 116/73 (87) Pulse Ox 95 O2 Delivery Room Air (JEFF STRINGER MD) Vital Signs/I&O Capillary Refill : Less Than 3 Seconds (JENNIFER SOLORZANO) Blood Pressure Mean: 87 Progress Note : Time: 14:57 Progress Note I have reviewed and agree with medical students documentation. 21-year-old female chief complaint of left lower quadrant abdominal pain, slight hematemesis a couple of days ago as well as a little blood when she wiped with the tissue after going to the bathroom a couple of days ago. Patient rating her pain at a 7 out of 10. Has not taken anything for the pain. Vital signs are st able. She is a . 2 prior C-sections. When I asked the patient to quantify the amount of blood she had when she wiped, (as she is A negative) she stated "it was just a little pink when I wiped with the toilet paper". She has had no further bleeding. She is not lightheaded or dizzy. Her exam is only remarkable for some mild tenderness in the left lower quadrant and right upper quadrant. Labs have been reviewed and are all within normal limits. She has a clean urinalysis. Transvaginal pelvic ultrasound showed a 9-week and 3 to 5-day . No ectopics were identified. Ovaries looked good. I encouraged the patient to take Tylenol for her cramping, gave her return precautions, advised her to take a vitamin and also follow-up with Dr. FARIAS. She verbalized understanding. All questions are sought and answered. (JEFF STRINGER MD) ECG Initial ECG Impression Date: Dec 23, 2021 Initial ECG Impression Time: 12:38 Initial ECG Rate: 76 Initial ECG Rhythm: Normal Sinus Initial ECG Intervals: Normal Initial ECG Impression: Normal (JEFF STRINGER MD) Departure Impression Primary Impression: Pelvic pain Additional Impression: 9 weeks gestation of Disposition: HOME, SELF-CARE Condition: Stable Departure-Patient Inst. Decision time for Depature: 14:50 (JEFF STRINGER MD) Referrals: BREONNA FARIAS MD NO,LOCAL PHYSICIAN (PCP) Primary Care Physician Patient Instructions: - The Third Month Add. Discharge Instructions: Drink lots of water to stay well-hydrated. Your estimated due date will be about Aug 26, 2022 (based on [place] from [place] You can take extra strength Tylenol 2 tablets every 6 hours as needed for pelvic cramping. If you have ANY vaginal bleeding please follow-up as soon as possible with Dr. FARIAS or come back to the emergency department for reevaluation. Please start taking a vitamin. Verification and Attestation of Medical Student E/M Service A medical student performed and documented this service in my presence. I reviewed and verified all information documented by the medical student and made modifications to such information, when appropriate. I personally performed the physical exam and medical decision making. Jeff Stringer, Dec 23, 2021,14:59 (JEFF STRINGER MD) Copy Copies To 1: BREONNA FARIAS MD, [place] Dec 23, 2021 10:57 JEFF STRINGER MD Dec 23, 2021 13:12
[2021-12-23 11:03] LABS: BILIRUBIN,URINE NEGATIVE (NEGATIVE); CLARITY,URINE CLEAR; COLOR,URINE YELLOW; GLUCOSE, URINE (UA) NEGATIVE (NEGATIVE); KETONES,URINE NEGATIVE (NEGATIVE); LEUKOCYTE ESTERASE ,URINE NEGATIVE (NEGATIVE); NITRITE,URINE NEGATIVE (NEGATIVE); PROTEIN,URINE NEGATIVE (NEGATIVE)
[2021-12-23 11:23] LABS: BACTERIA,URINE NEGATIVE /HPF; SQUAMOUS EPITHELIAL CELL,UR 0-2 /HPF
[2021-12-23 11:45] LABS: BASOPHILS % (AUTO) 0 % (0-10); EOSINOPHILS # (AUTO) 0.1 10^3/uL (0.0-0.3); EOSINOPHILS % (AUTO) 2 % (0-10); HEMATOCRIT 38 % (35-52); HEMOGLOBIN 13.1 g/dL (11.5-16.0); LYMPHOCYTES # (AUTO) 2.3 10^3/uL (1.0-4.0); LYMPHOCYTES % (AUTO) 36 % (12-44); MEAN CORPUSCULAR HEMOGLOBIN 31 pg (25-34); MEAN CORPUSCULAR HGB CONC 34 g/dL (32-36); MEAN CORPUSCULAR VOLUME 91 fL (80-99); MEAN PLATELET VOLUME 9.7 fL (9.0-12.2); MONOCYTES # (AUTO) 0.4 10^3/uL (0.0-1.0); MONOCYTES % (AUTO) 6 % (0-12); NEUTROPHILS # (AUTO) 3.6 10^3/uL (1.8-7.8); NEUTROPHILS % (AUTO) 56 % (42-75); PLATELET COUNT 232 10^3/uL (130-400); WHITE BLOOD COUNT 6.4 10^3/uL (4.3-11.0)
[2021-12-23 12:02] LABS: POTASSIUM 3.9 MMOL/L (3.6-5.0)
[2021-12-23 12:03] LABS: CALCIUM 8.6 MG/DL (8.5-10.1)
[2021-12-23 12:07] LABS: CREATININE SERUM 0.56 MG/DL (0.60-1.30)
[2021-12-23] MEDS ORDERED: ACETAMINOPHEN 500 MG TAB (TYLENOL) PO ONE (13:45)
[2021-12-23 15:05] VITALS: BP 113/90
--- NOTE | 2021-12-23 15:46 | Diagnostic Imaging Report ---
TECHNIQUE: Live grayscale and color Doppler ultrasound was performed of the pelvis transabdominally and endovaginally. REASON FOR EXAM: . Unsure dates. Evaluate for viability. COMPARISON: None. FINDINGS: A single live intrauterine gestation is present with a CRL of 2.6 cm. This corresponds with an estimated gestational age of 9 weeks 3 days and MARCELLE of 07/25/2022. heart rate is 165 BPM. The gestational sac demonstrates normal size and contours. There is a thin echogenic ring surrounding the fetus. The bilateral ovaries are well visualized and have a normal appearance. The right ovary measures 3.4 x 1.5 x 1.2 cm. The left ovary measures 3.1 x 1.6 x 1.5 cm. No free fluid is visualized within the posterior cul-de-sac. IMPRESSION: 1. Single live intrauterine gestation with EGA of 9 weeks, 3 days and estimated due date of 07/25/2022. 2. Thin echogenic ring surrounding the fetus of indeterminate etiology. Findings are concerning for chorioamnionic separation or large subchorionic hemorrhage. Amniotic band is also a possibility. Recommend continued close follow-up. Dictated by: Dictated on workstation # [id number]
== END 2021-12-23 15:05 | disposition home or self-care (01) ==
LOC: EDUNIT# 10:08 → ER 10:10
DX: O26.891 Other specified pregnancy related conditions, first trimester (principal); R10.2 Pelvic and perineal pain; R10.13 Epigastric pain; Z3A.09 9 weeks gestation of pregnancy
CPT/HCPCS: 36415; 76801; 76817; 80048; 81000; 84702; 84703; 85025; 86900; 86901; 93005

== ENCOUNTER 2023-05-16 14:46 | Outpatient (CLI) | payer MEDICAID ==
[~2023-05-16] VITALS: Ht 155 cm; Wt 84.2 kg
[2023-05-16 15:00] VITALS: BP 110/68
[2023-05-16] MEDS ORDERED: FLU QUADRIvalent (6 months+) 60 mcg/0.5 ml 2023-2024 (FLUARIX) IM ONE (16:00)
[2023-05-16 16:01] LABS: BACTERIA,URINE NEGATIVE /HPF; BILIRUBIN,URINE 1+ (NEGATIVE); CLARITY,URINE CLEAR; COLOR,URINE YELLOW; GLUCOSE, URINE (UA) NEGATIVE (NEGATIVE); KETONES,URINE TRACE (NEGATIVE); LEUKOCYTE ESTERASE ,URINE NEGATIVE (NEGATIVE); NITRITE,URINE NEGATIVE (NEGATIVE); PROTEIN,URINE 2+ (NEGATIVE); RBC,URINE 0-2 /HPF; WBC,URINE 0-2 /HPF
[2023-05-16 16:02] LABS: AMORPHOUS SEDIMENT,UR FEW AMOR URATES /LPF
[2023-05-16] MEDS ORDERED: CEPHALEXIN 250 MG CAPSULE PO ONE (16:20)
[2023-05-16] MEDS ORDERED: CEPH500C PO (16:27)
--- NOTE | 2023-05-17 08:03 | Physician Query-Final Dx ---
Clinic Account Progress/Dx Physician Query: Please give diagnosis Please include # weeks gestation Date of Service May 16, 2023 at 14:46 TREVOR,JulMay 17, 2023 08:03
== END 2023-05-16 18:00 | disposition home or self-care (01) ==
LOC: LDRP 14:46 → WSo 14:46
PROVIDERS: ATTEND Family Medicine
DX: O47.02 False labor before 37 completed weeks of gestation, second trimester (principal); Z3A.27 27 weeks gestation of pregnancy
CPT/HCPCS: 81000; 87088; 99213